=== PATIENT | male | born 1940 | race Caucasian/White ===

== ENCOUNTER 2018-11-06 08:40 | Day surgery (SDC) | payer MEDICARE, BC ==
[~2018-11-06] VITALS: Ht 172.7 cm; Wt 93.1 kg
[2018-11-06] VITALS (13 sets, daily range): BP systolic 93–150; BP diastolic 43–70
[~2018-11-06 08:40] MED LIST: ALLO100T PO; ASPI-1 PO; ATOR40TA PO; CHOL400T57 PO; COLC0.6C3 PO; DIPH-3 PO; FERR134T2 PO; FINA5TAB11 PO; FLUT1BLS3 INH; GLUC100017; IBUP-2264; LEVO125T69 PO; MELO-100 PO; MONT10TA24 PO; MULT-662 PO; NITR0.4T51 SL; OMEP-84 PO; OXYC-658 PO; PIOG45TA PO; SENN-173 PO; SUMA25TA35 PO; ZET10T PO
[2018-11-06] MEDS ORDERED: glucagon, human recombinant 1mg kit SUBCUT PRN (09:20)
[2018-11-06] MEDS ORDERED: dextrose 50%-water 50ml dispensing syringe IV PRN ×2 (09:20)
[2018-11-06] MEDS ORDERED: insulin Lispro (HumaLOG) vial - multi-dose SQ SCH (09:20)
[2018-11-06] MEDS ORDERED: MESSAGE TO PHARMACY PO ONE (09:20)
[2018-11-06] MEDS ORDERED: dextrose ORAL solution 15 GM/59 ML bottle PO PRN ×2 (09:20)
[2018-11-06] MEDS ORDERED: nitroGLYCERIN 0.4mg SUBLingual tab SL PRN (09:25)
[2018-11-06] MEDS ORDERED: LORazepam 0.5 MG tablet PO PRN (09:25)
[2018-11-06] MEDS ORDERED: normal saline 1000ml 1,000 ML IV SCH (09:25)
[2018-11-06] MEDS ORDERED: diphenhydrAMINE 25mg capsule PO PRN (09:25)
[2018-11-06] MEDS ORDERED: ASPI81TA52 PO (09:45)
[2018-11-06 09:46] LABS: BASOPHILS % (AUTO) 0.7 % (0-1); EOSINOPHILS # (AUTO) 0.3 X10'3 (0-0.9); EOSINOPHILS % (AUTO) 3.6 % (0-6); HEMATOCRIT 34.5 % (42.0-52.0); HEMOGLOBIN 11.4 g/dl (14.0-17.9); LYMPHOCYTES # (AUTO) 0.6 X10'3 (1.1-4.8); LYMPHOCYTES % (AUTO) 8.9 % (21-51); MEAN CORPUSCULAR HEMOGLOBIN 31.6 PG (27.0-31.0); MEAN CORPUSCULAR VOLUME 95.8 FL (78-98); MEAN PLATELET VOLUME 7.4 FL (7.4-10.4); MONOCYTES # (AUTO) 0.5 X10'3 (0-0.9); NEUTROPHILS # (AUTO) 5.7 X10'3 (1.8-7.7); NEUTROPHILS % (AUTO) 79.8 % (42-75); PLATELET COUNT 232 X10'3 (140-440); RED BLOOD COUNT 3.61 X10'6 (4.70-6.10); RED CELL DISTRIBUTION WIDTH 15.2 % (11.5-14.5); WHITE BLOOD COUNT 7.2 X10'3 (4.5-11.0)
[2018-11-06 09:51] LABS: ALBUMIN 3.7 G/DL (3.4-5.0); ANION GAP 12 (8-16); BLOOD UREA NITROGEN 32 MG/DL (7-18); BUN/CREATININE RATIO 21.9 (5.4-32.0); CALCIUM 9.1 MG/DL (8.5-10.1); CHLORIDE 105 MMOL/L (99-107); CREATININE 1.46 MG/DL (0.60-1.10); GLUCOSE 131 MG/DL (70-104); SODIUM 143 MMOL/L (135-145); TOTAL CARBON DIOXIDE 26.4 MMOL/L (24-32); eGFR 47 ML/MIN
[2018-11-06] MEDS ORDERED: LIDOcaine 1% (10mg/ml)w/preservative injection 20ml MDV ONE (09:55)
[2018-11-06] MEDS ORDERED: heparin 1,000 UNITS/NS 500ml 500 ML ONE (09:55)
[2018-11-06] MEDS ORDERED: iohexol 350MG/ML 100ml bottle IV ONE (09:55)
[2018-11-06] MEDS ORDERED: iohexol 350 MG/ML 50ML vial IV ONE ×3 (09:55→11:59)
[2018-11-06 10:08] LABS: INR 1.1 INR; PARTIAL THROMBOPLASTIN TIME 29 SECONDS (22-32); PROTHROMBIN TIME 10.8 SECONDS (9.0-12.0)
[2018-11-06] MEDS ORDERED: midazolam 2 mg/2 ml injection ONE ×2 (10:23→12:02)
[2018-11-06] MEDS ORDERED: fentaNYL/PF 50MCG/1 ML 2ML syringe ONE (10:23)
[2018-11-06] MEDS ORDERED: acetaminophen 325mg tablet PO PRN (13:10)
[2018-11-06] MEDS ORDERED: OXAZEpam 15mg capsule PO PRN (13:10)
[2018-11-06] MEDS ORDERED: proCHLORperazine 10 MG/2 ml inj IV PRN (13:10)
[2018-11-06] MEDS ORDERED: ondansetron/PF 4mg/2ml inj IV PRN (13:10)
[2018-11-06] MEDS ORDERED: HYDROcodone/acetaminophen 10/325mg tab PO PRN (13:10)
[2018-11-06] MEDS ORDERED: HYDROcodone/acetaminophen 5mg/325mg tablet PO PRN (13:10)
[2018-11-06] MEDS ORDERED: pneumococcal 23-VAL P-sac vacc 25 mcg/0.5ml vial IMVAC ONE (16:57)
[2018-11-06] MEDS ORDERED: insulin glargine (Lantus) pen - multi-dose SQ SCH (21:00)
== END 2018-11-06 19:41 | disposition home or self-care (01) ==
LOC: SSTAY O 08:40
PROVIDERS: ATTEND Internal Medicine Cardiovascular Disease
DX: I25.118 Atherosclerotic heart disease of native coronary artery with other forms of angina pectoris (principal); I48.0 Paroxysmal atrial fibrillation; E11.9 Type 2 diabetes mellitus without complications; I10 Essential (primary) hypertension; E78.5 Hyperlipidemia, unspecified; J44.9 Chronic obstructive pulmonary disease, unspecified; G89.29 Other chronic pain; I35.1 Nonrheumatic aortic (valve) insufficiency; J45.998 Other asthma; M19.90 Unspecified osteoarthritis, unspecified site; H91.8X3 Other specified hearing loss, bilateral; Z72.89 Other problems related to lifestyle; Z79.1 Long term (current) use of non-steroidal anti-inflammatories (NSAID); Z79.891 Long term (current) use of opiate analgesic; Z95.1 Presence of aortocoronary bypass graft; Z86.79 Personal history of other diseases of the circulatory system; Z87.891 Personal history of nicotine dependence; Z79.4 Long term (current) use of insulin; Z23 Encounter for immunization; Z79.82 Long term (current) use of aspirin; Z79.899 Other long term (current) drug therapy
CPT/HCPCS: 36415; 71046; 80048; 83036; 85025; 85610; 85730; 90732; 93005; 93459; 93567; 99152; 99153; A6257; C1760; G0009; J1644; J2001; J2250; J3010; J7030; Q9967; A4620; C1769

== ENCOUNTER 2020-04-07 08:16 | Outpatient (CLI) | payer MEDICARE, BC ==
[~2020-04-07] VITALS: Ht 172.7 cm; Wt 88.5 kg
[~2020-04-07 08:16] MED LIST changes: -ASPI-1 PO; +ASPI81TA52 PO; -DIPH-3 PO; -IBUP-2264; +IBUP-2697; -MONT10TA24 PO; +MONT10TA26 PO
[2020-04-07] MEDS ORDERED: albuterol 2.5 MG/3 ML nebule NEB ONE (09:05)
[2020-04-07 17:10] LABS: TOTAL HEMOGLOBIN 12.2 G/dl (14.0-17.9)
== END 2020-04-07 23:59 | disposition home or self-care (01) ==
LOC: RT 08:16
PROVIDERS: ATTEND Internal Medicine Cardiovascular Disease
DX: R06.02 Shortness of breath (principal)
CPT/HCPCS: 85018; 94060; 94727; 94729; 94760

== ENCOUNTER 2020-12-11 20:46 | Inpatient (IN) | payer MEDICARE, BC ==
[~2020-12-11] VITALS: Ht 170.2 cm; Wt 82.0 kg
[2020-12-11 18:00] VITALS: BP 100/47
[~2020-12-11 20:46] MED LIST changes: +ALBU8.5H8 IH; +ATR0.5NEB NEB; +CYAN100087 PO; +FLO0.4C PO; +FURO40TA4 PO; -GLUC100017; -IBUP-2697; +MELA10TA PO; -MELO-100 PO; +METO25TA6 PO; -MONT10TA26 PO; +MONT10TA97 PO; -OXYC-658 PO; -PIOG45TA PO; +POTA8CAP20 PO; -SENN-173 PO; +TIOT4MIS5 INH
[2020-12-11] MEDS ORDERED: temazepam 15mg capsule PO PRN (21:00)
[2020-12-11] MEDS ORDERED: aspirin 81mg tab.chew PO ONE (21:15)
[2020-12-11 21:32] LABS: BASOPHILS # (AUTO) 0.1 X10'3 (0-0.2); BASOPHILS % (AUTO) 0.9 % (0-1); EOSINOPHILS # (AUTO) 0.1 X10'3 (0-0.9); EOSINOPHILS % (AUTO) 1.9 % (0-6); HEMATOCRIT 38.4 % (42.0-52.0); HEMOGLOBIN 12.4 g/dl (14.0-17.9); LYMPHOCYTES # (AUTO) 0.9 X10'3 (1.1-4.8); LYMPHOCYTES % (AUTO) 12.3 % (21-51); MEAN CORPUSCULAR HEMOGLOBIN 29.9 PG (27.0-31.0); MEAN CORPUSCULAR HGB CONC 32.4 g/dL (33.0-36.5); MEAN CORPUSCULAR VOLUME 92.4 FL (78-98); MEAN PLATELET VOLUME 6.7 FL (7.4-10.4); MONOCYTES # (AUTO) 0.8 X10'3 (0-0.9); MONOCYTES % (AUTO) 11.6 % (2-12); NEUTROPHILS # (AUTO) 5.3 X10'3 (1.8-7.7); NEUTROPHILS % (AUTO) 73.3 % (42-75); PLATELET COUNT 281 X10'3 (140-440); RED BLOOD COUNT 4.16 X10'6 (4.70-6.10); RED CELL DISTRIBUTION WIDTH 16.6 % (11.5-14.5); WHITE BLOOD COUNT 7.2 X10'3 (4.5-11.0)
[2020-12-11 21:47] LABS: ALANINE AMINOTRANSFERASE 22 U/L (12-78); ALBUMIN 3.4 G/DL (3.4-5.0); ALBUMIN/GLOBULIN RATIO 1.1 (1.1-1.5); ALKALINE PHOSPHATASE 63 IU/L (46-116); ANION GAP 6 (8-16); ASPARTATE AMINO TRANSFERASE 13 U/L (10-37); BILIRUBIN,TOTAL 0.4 MG/DL (0.1-1.0); BLOOD UREA NITROGEN 22 MG/DL (7-18); BUN/CREATININE RATIO 15.1 (5.4-32.0); CALCIUM 8.2 MG/DL (8.5-10.1); CHLORIDE 106 MMOL/L (99-107); CREATININE 1.46 MG/DL (0.60-1.10); GLUCOSE 129 MG/DL (70-104); POTASSIUM 4.2 MMOL/L (3.5-5.1); SODIUM 141 MMOL/L (135-145); TOTAL CARBON DIOXIDE 28.6 MMOL/L (24-32); TOTAL PROTEIN 6.5 G/DL (6.4-8.2); eGFR 46 ML/MIN
[2020-12-11] MEDS ORDERED: magnesium 2GM in 50ml NS 50 ML IV PRN (22:30)
[2020-12-11] MEDS ORDERED: magnesium 4gm in 100ml NS 100 ML IV PRN (22:30)
[2020-12-11] MEDS ORDERED: magnesium Cl slow-release 64mg tablet PO PRN (22:30)
[2020-12-11] MEDS ORDERED: potassium Cl 40MEQ/1/2NS 520ml 520 ML IV PRN ×2 (22:30)
[2020-12-11] MEDS ORDERED: HYDROcodone/acetaminophen 10/325mg tab PO PRN (22:30)
[2020-12-11] MEDS ORDERED: regadenoson 0.4mg/5ml syringe IV ONE (22:30)
[2020-12-11] MEDS ORDERED: morphine 2 MG/ML inj. syringe IV PRN ×2 (22:30)
[2020-12-11] MEDS ORDERED: ondansetron/PF 4mg/2ml inj IV PRN (22:30)
[2020-12-11] MEDS ORDERED: acetaminophen 325mg tablet PO PRN ×2 (22:30)
[2020-12-11] MEDS ORDERED: metoprolol tartrate 1mg/ml inj IV PRN (22:30)
[2020-12-11] MEDS ORDERED: docusate sod 100mg capsule PO PRN (22:30)
[2020-12-11] MEDS ORDERED: HYDROcodone/acetaminophen 5mg/325mg tablet PO PRN (22:30)
[2020-12-11] MEDS ORDERED: potassium Cl 20 mEq SR tablet PO PRN ×2 (22:30)
[2020-12-11] MEDS ORDERED: normal saline 1000ml 1,000 ML IV SCH (22:30)
[2020-12-11] MEDS ORDERED: aminophylline 250mg/10ml inj. IV PRN (22:30)
[2020-12-11] MEDS ORDERED: nitroGLYCERIN 0.4mg SUBLingual tab SL PRN (22:30)
[2020-12-11] MEDS ORDERED: dextrose 50%-water 50ml dispensing syringe IV PRN ×2 (22:55)
[2020-12-11] MEDS ORDERED: glucagon, human recombinant 1mg kit SUBCUT PRN (22:55)
[2020-12-11] MEDS ORDERED: MESSAGE TO PHARMACY PO ONE (22:55)
[2020-12-11] MEDS ORDERED: insulin Lispro (HumaLOG) vial - multi-dose SQ SCH (22:55)
[2020-12-11] MEDS ORDERED: dextrose ORAL solution 15 GM/59 ML bottle PO PRN ×2 (22:55)
[2020-12-11 23:35] VITALS: BP 144/78
[2020-12-12] VITALS (10 sets, daily range): BP systolic 111–147; BP diastolic 52–80
[2020-12-12 03:29] LABS: BASOPHILS # (AUTO) 0.1 X10'3 (0-0.2); BASOPHILS % (AUTO) 1.1 % (0-1); EOSINOPHILS # (AUTO) 0.2 X10'3 (0-0.9); EOSINOPHILS % (AUTO) 2.6 % (0-6); HEMATOCRIT 35.3 % (42.0-52.0); HEMOGLOBIN 11.6 g/dl (14.0-17.9); LYMPHOCYTES # (AUTO) 1.2 X10'3 (1.1-4.8); LYMPHOCYTES % (AUTO) 16.5 % (21-51); MEAN CORPUSCULAR HEMOGLOBIN 30.2 PG (27.0-31.0); MEAN CORPUSCULAR HGB CONC 32.7 g/dL (33.0-36.5); MEAN CORPUSCULAR VOLUME 92.5 FL (78-98); MEAN PLATELET VOLUME 6.9 FL (7.4-10.4); MONOCYTES # (AUTO) 0.9 X10'3 (0-0.9); MONOCYTES % (AUTO) 12.8 % (2-12); NEUTROPHILS # (AUTO) 4.9 X10'3 (1.8-7.7); PLATELET COUNT 265 X10'3 (140-440); RED BLOOD COUNT 3.82 X10'6 (4.70-6.10); RED CELL DISTRIBUTION WIDTH 16.9 % (11.5-14.5); WHITE BLOOD COUNT 7.3 X10'3 (4.5-11.0)
[2020-12-12 03:46] LABS: ALANINE AMINOTRANSFERASE 18 U/L (12-78); ALBUMIN/GLOBULIN RATIO 1.1 (1.1-1.5); ALKALINE PHOSPHATASE 51 IU/L (46-116); ANION GAP 8 (8-16); ASPARTATE AMINO TRANSFERASE 16 U/L (10-37); BILIRUBIN,TOTAL 0.5 MG/DL (0.1-1.0); BLOOD UREA NITROGEN 22 MG/DL (7-18); BUN/CREATININE RATIO 17.1 (5.4-32.0); CALCIUM 7.9 MG/DL (8.5-10.1); CHLORIDE 107 MMOL/L (99-107); CREATININE 1.29 MG/DL (0.60-1.10); GLUCOSE 136 MG/DL (70-104); POTASSIUM 3.7 MMOL/L (3.5-5.1); SODIUM 140 MMOL/L (135-145); TOTAL CARBON DIOXIDE 25.4 MMOL/L (24-32); TOTAL PROTEIN 5.8 G/DL (6.4-8.2); eGFR 53 ML/MIN
--- NOTE | 2020-12-12 06:28 | NUR ---
Patient in room PCU 3016. I have received report from KARMA Alcazar and had the opportunity to ask questions and assume patient care.
--- NOTE | 2020-12-12 06:29 | NUR ---
Problems reprioritized. Patient report given, questions answered & plan of care reviewed with Cristine RN
[2020-12-12] MEDS ORDERED: albuterol 2.5 MG/3 ML nebule NEB PRN (07:25)
[2020-12-12] MEDS ORDERED: pantoprazole 40mg Tablet.DR PO SCH (07:30)
[2020-12-12] MEDS ORDERED: ezetimibe 10mg tablet PO SCH (08:00)
[2020-12-12] MEDS ORDERED: ferrous sulfate 325mg tablet PO SCH (08:00)
[2020-12-12] MEDS ORDERED: finasteride 5mg tablet PO SCH (08:00)
[2020-12-12] MEDS ORDERED: budesonide 0.5mg/2ml UD nebule IH SCH (08:00)
[2020-12-12] MEDS ORDERED: aspirin 81mg tablet.DR PO SCH (08:00)
[2020-12-12] MEDS ORDERED: tamsulosin 0.4mg capsule PO SCH (08:00)
[2020-12-12] MEDS ORDERED: levoTHYROXINE 125mcg tablet PO SCH (08:00)
[2020-12-12] MEDS ORDERED: ipratropium 0.5 MG/2.5ML nebule NEB SCH (08:00)
[2020-12-12] MEDS ORDERED: heparin, porcine 5000 units/ml vial SQ SCH (08:00)
[2020-12-12] MEDS ORDERED: furosemide 40mg tablet PO SCH (08:00)
[2020-12-12] MEDS ORDERED: K and/or MAG REPLACEMENT MC SCH (08:00)
--- NOTE | 2020-12-12 13:03 | NUR ---
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 Pt reports eating fruits exacerbates general allergy symptoms such as dry/watery eyes so he simply does not eat at home. Not an anaphylactic allergy per pt report; pending allergy update in EMR. Currently pt does not like milk to drink as well as peas per RN; dietary notified. Noted hx DM w/ A1C less than 7 appropriate given age. To provide full initial assessment on above date. Addendum: 12/12/20 at [address] Amended: Links added.
--- NOTE | 2020-12-12 15:36 | NUR ---
Patient given hospital top, I was unable to find his shirt, called ER and lost and found, looked throughout room for his shirt. Unable to describe which shirt he was wearing but no shirt was found.Patient stated "not worried about any shirt, I'll go home shirtless". Given a hospital shirt and offered blanket but he declined.
[2020-12-12] MEDS ORDERED: montelukast 10mg tablet PO SCH (21:00)
[2020-12-12] MEDS ORDERED: allopurinol 100mg tablet PO SCH (21:00)
[2020-12-12] MEDS ORDERED: insulin glargine (Lantus) pen - multi-dose SQ SCH (21:00)
[2020-12-12] MEDS ORDERED: atorvastatin 20mg tablet PO SCH (21:00)
--- NOTE | 2020-12-14 10:06 | NUR ---
CASE MANAGEMENT DISCHARGE FOLLOW UP: Spoke with pt via telephone. Pt reports that he is "doing okay." Denies current CP, but states that he had some CP yesterday that resolved with 1 dose of nitro, pt advised to return to ED or notify EMS if he has further CP requirng Nitrop. Pt denies any current CP, weakness. He states that he is SOB with exertion but that it is at the level of his baseline. Pt verbalizes understanding of s/sx requiring further evaluation/emergent assistance. Pt verbalizes understanding of current medications. Pt verbalizes compliance with MD discharge instructions. Pt verbalizes understanding of the importance in making/keeping follow-up appointments, states saw one of his doctors yesterday and an MRI showed "spots in back" and that doctor is going to refer him to a specialist, he thinks she said a "bone doctor", possibly Dr Owen. He states that he has not contacted Dr Bolaños's office for an appointment, but that he did give his dyer assistant his hospital paperwork. He states that he will call Dr Bolaños's office today to set up a follow-up appointment, declines need for assistance. Pt states no further questions/concerns at this time.
== END 2020-12-12 15:24 | disposition home or self-care (01) | DRG 313 ==
LOC: ER 20:47 → PCU 3S 22:29
PROVIDERS: ADMIT Internal Medicine; ATTEND Internal Medicine
PROC: 4A02XM4 Measurement of Cardiac Total Activity, External Approach (ICD-10-PCS; principal; 2020-12-12)
PROC: 3E033HZ Introduction of Radioactive Substance into Peripheral Vein, Percutaneous Approach (ICD-10-PCS; 2020-12-12)
DX: R07.9 Chest pain, unspecified (principal); E03.9 Hypothyroidism, unspecified; E11.22 Type 2 diabetes mellitus with diabetic chronic kidney disease; E78.00 Pure hypercholesterolemia, unspecified; E78.5 Hyperlipidemia, unspecified; I12.9 Hypertensive chronic kidney disease with stage 1 through stage 4 chronic kidney disease, or unspecified chronic kidney disease; I25.10 Atherosclerotic heart disease of native coronary artery without angina pectoris; J44.9 Chronic obstructive pulmonary disease, unspecified; N18.9 Chronic kidney disease, unspecified; N40.0 Benign prostatic hyperplasia without lower urinary tract symptoms; G47.30 Sleep apnea, unspecified; M10.9 Gout, unspecified; J45.909 Unspecified asthma, uncomplicated; Z79.82 Long term (current) use of aspirin; Z79.899 Other long term (current) drug therapy; Z95.1 Presence of aortocoronary bypass graft; Z91.018 Allergy to other foods
CPT/HCPCS: 36415; 71045; 78452; 80053; 82948; 83036; 83735; 83880; 84484; 85025; 93005; 93017; 93308; 97161; 97530; 99285; A9500; G0378; J1815; J2785; J7030

== ENCOUNTER 2020-12-28 12:30 | Emergency (ER) | payer MEDICARE, BC ==
[~2020-12-28] VITALS: Ht 170.2 cm; Wt 81.8 kg
[2020-12-28 12:52] VITALS: BP 132/67
[2020-12-28] MEDS ORDERED: PRED20TA PO (14:09)
== END 2020-12-28 14:40 | disposition home or self-care (01) ==
LOC: ER 12:31
DX: J45.901 Unspecified asthma with (acute) exacerbation (principal); R06.02 Shortness of breath; R07.89 Other chest pain; I25.10 Atherosclerotic heart disease of native coronary artery without angina pectoris; E78.00 Pure hypercholesterolemia, unspecified; I12.9 Hypertensive chronic kidney disease with stage 1 through stage 4 chronic kidney disease, or unspecified chronic kidney disease; E11.22 Type 2 diabetes mellitus with diabetic chronic kidney disease; N18.9 Chronic kidney disease, unspecified; E03.9 Hypothyroidism, unspecified; M10.9 Gout, unspecified; Z98.890 Other specified postprocedural states; Z88.8 Allergy status to other drugs, medicaments and biological substances; Z79.82 Long term (current) use of aspirin; Z79.899 Other long term (current) drug therapy
CPT/HCPCS: 93005; 99283

== ENCOUNTER 2021-02-25 07:51 | Emergency (ER) | payer MEDICARE, BC ==
[~2021-02-25] VITALS: Ht 170.2 cm; Wt 87.5 kg
[~2021-02-25 07:51] MED LIST changes: +LOP25T PO; -METO25TA6 PO; +MONT10TA32 PO; -MONT10TA97 PO
[2021-02-25 09:47] LABS: BASOPHILS # (AUTO) 0.1 X10'3 (0-0.2); BASOPHILS % (AUTO) 0.9 % (0-1); EOSINOPHILS # (AUTO) 0.1 X10'3 (0-0.9); EOSINOPHILS % (AUTO) 0.7 % (0-6); HEMATOCRIT 40.4 % (42.0-52.0); HEMOGLOBIN 12.8 g/dl (14.0-17.9); LYMPHOCYTES # (AUTO) 0.4 X10'3 (1.1-4.8); MEAN CORPUSCULAR HEMOGLOBIN 29.3 PG (27.0-31.0); MEAN CORPUSCULAR HGB CONC 31.8 g/dL (33.0-36.5); MEAN CORPUSCULAR VOLUME 92.3 FL (78-98); MEAN PLATELET VOLUME 7.1 FL (7.4-10.4); MONOCYTES # (AUTO) 0.7 X10'3 (0-0.9); MONOCYTES % (AUTO) 7.4 % (2-12); NEUTROPHILS # (AUTO) 7.6 X10'3 (1.8-7.7); PLATELET COUNT 241 X10'3 (140-440); RED BLOOD COUNT 4.38 X10'6 (4.70-6.10); RED CELL DISTRIBUTION WIDTH 18.3 % (11.5-14.5); WHITE BLOOD COUNT 8.8 X10'3 (4.5-11.0)
[2021-02-25 10:04] LABS: ALANINE AMINOTRANSFERASE 21 U/L (12-78); ALBUMIN 3.4 G/DL (3.4-5.0); ALBUMIN/GLOBULIN RATIO 1.1 (1.1-1.5); ALKALINE PHOSPHATASE 60 IU/L (46-116); ANION GAP 7 (8-16); ASPARTATE AMINO TRANSFERASE 21 U/L (10-37); BILIRUBIN,TOTAL 0.6 MG/DL (0.1-1.0); BLOOD UREA NITROGEN 15 MG/DL (7-18); BUN/CREATININE RATIO 12.3 (5.4-32.0); CALCIUM 8.2 MG/DL (8.5-10.1); CHLORIDE 110 MMOL/L (99-107); CREATININE 1.22 MG/DL (0.60-1.10); GLUCOSE 109 MG/DL (70-104); POTASSIUM 4.1 MMOL/L (3.5-5.1); SODIUM 145 MMOL/L (135-145); TOTAL CARBON DIOXIDE 27.9 MMOL/L (24-32); TOTAL PROTEIN 6.4 G/DL (6.4-8.2); eGFR 57 ML/MIN
--- NOTE | 2021-02-25 10:05 | NUR ---
PATIENT C/O OF SUBSTERNAL CP JUST STARTED NO RADIATION, "MILD" , ACHE, DOES NOT GET WORSE WITH DEEP BREATHE, REPEAT EKG IN PROGRESS, THEN STOPPED, DURATION ABOUT 2 MINUTES
--- NOTE | 2021-02-25 10:07 | NUR ---
SHANIA GOOD INFORMED OF CP AND SHOWN EKG, DR PAFS SHOWN EKG, NO ORDERS
[2021-02-25 10:23] LABS: CLARITY,URINE CLEAR (Clear); COLOR,URINE YELLOW (Yellow); GLUCOSE, URINE NEGATIVE (Neg); KETONES,URINE NEGATIVE (Neg); LEUKOCYTE ESTERASE ,URINE NEGATIVE (Neg); NITRITES, URINE NEGATIVE (Neg); OCCULT BLOOD,URINE NEGATIVE (Neg); PROTEIN,URINE NEGATIVE (Neg); UA COLLECTION TYPE URINAL; UROBILINOGEN,URINE 0.2 E.U/dL (0.2-1.0)
--- NOTE | 2021-02-25 10:23 | NUR ---
PATIENT DID NOT TAKE ANY OF HIS MEDICATIONS THIS AM : DID NOT TAKE HIS HTN MEDS
--- NOTE | 2021-02-25 10:29 | NUR ---
PATIENT FEELS "MUCH BETTER" NOW CALLED LAB TO RUN TROPONIN: SHANIA ORDERED SERIES AND I ORDERED A SINGLE TROPONIN LAB WILL RUN TROPONIN NOW ON BLOOD DRAWN EARLIER
[2021-02-25 11:35] VITALS: BP 134/66
== END 2021-02-25 11:37 | disposition home or self-care (01) ==
LOC: ER 07:51
DX: R06.02 Shortness of breath (principal); R42 Dizziness and giddiness; R07.89 Other chest pain; R55 Syncope and collapse; I25.10 Atherosclerotic heart disease of native coronary artery without angina pectoris; E78.00 Pure hypercholesterolemia, unspecified; I12.9 Hypertensive chronic kidney disease with stage 1 through stage 4 chronic kidney disease, or unspecified chronic kidney disease; E11.22 Type 2 diabetes mellitus with diabetic chronic kidney disease; N18.9 Chronic kidney disease, unspecified; E03.9 Hypothyroidism, unspecified; M10.9 Gout, unspecified; Z98.890 Other specified postprocedural states; Z91.018 Allergy to other foods; Z88.8 Allergy status to other drugs, medicaments and biological substances; Z79.82 Long term (current) use of aspirin; Z79.899 Other long term (current) drug therapy
CPT/HCPCS: 36415; 71045; 80053; 81003; 83880; 84484; 85025; 93005; 99285

== ENCOUNTER 2022-02-16 13:51 | Emergency (ER) | payer MEDICARE, BC ==
[~2022-02-16] VITALS: Ht 165.1 cm; Wt 85.0 kg
[~2022-02-16 13:51] MED LIST changes: +ALBU8.5H17 IH; -ALBU8.5H8 IH; +MONT-40 PO; -MONT10TA32 PO
--- NOTE | 2022-02-16 14:00 | NUR ---
Pt placed in room 8. Son at the bedside. Pt is confused and is hallucinating. He is reaching for things in the air that are not present.
[2022-02-16] MEDS ORDERED: quetiapine 100mg tablet PO STA (14:19)
[2022-02-16] MEDS ORDERED: normal saline 1000ML IV soln IVB ONE (14:20)
[2022-02-16] MEDS ORDERED: OLANZapine **IM** 10 mg inj. IM ONE (14:20)
[2022-02-16 14:36] LABS: BASOPHILS % (AUTO) 0.7 % (0-1); EOSINOPHILS % (AUTO) 0.7 % (0-6); HEMATOCRIT 30.6 % (42.0-52.0); HEMOGLOBIN 10.1 g/dl (14.0-17.9); LYMPHOCYTES # (AUTO) 0.5 X10'3 (1.1-4.8); LYMPHOCYTES % (AUTO) 8.1 % (21-51); MEAN CORPUSCULAR HEMOGLOBIN 32.4 PG (27.0-31.0); MEAN CORPUSCULAR HGB CONC 33.1 g/dL (33.0-36.5); MEAN CORPUSCULAR VOLUME 97.7 FL (78-98); MEAN PLATELET VOLUME 7.3 FL (7.4-10.4); MONOCYTES # (AUTO) 0.7 X10'3 (0-0.9); MONOCYTES % (AUTO) 10.9 % (2-12); NEUTROPHILS # (AUTO) 5.4 X10'3 (1.8-7.7); NEUTROPHILS % (AUTO) 79.6 % (42-75); PLATELET COUNT 187 X10'3 (140-440); RED BLOOD COUNT 3.13 X10'6 (4.70-6.10); RED CELL DISTRIBUTION WIDTH 15.9 % (11.5-14.5); WHITE BLOOD COUNT 6.7 X10'3 (4.5-11.0)
[2022-02-16 14:53] LABS: ALANINE AMINOTRANSFERASE 32 U/L (12-78); ALBUMIN 3.6 G/DL (3.4-5.0); ALBUMIN/GLOBULIN RATIO 1.2 (1.1-1.5); ALKALINE PHOSPHATASE 78 IU/L (46-116); ANION GAP 8 (8-16); ASPARTATE AMINO TRANSFERASE 25 U/L (10-37); BILIRUBIN,TOTAL 1.2 MG/DL (0.1-1.0); BLOOD UREA NITROGEN 32 MG/DL (7-18); CALCIUM 8.7 MG/DL (8.5-10.1); CHLORIDE 107 MMOL/L (99-107); CREATININE 1.78 MG/DL (0.60-1.10); GLUCOSE 156 MG/DL (70-104); POTASSIUM 3.8 MMOL/L (3.5-5.1); SODIUM 143 MMOL/L (135-145); TOTAL CARBON DIOXIDE 28.5 MMOL/L (24-32); TOTAL PROTEIN 6.7 G/DL (6.4-8.2); eGFR 37 ML/MIN
[2022-02-16] MEDS ORDERED: hyDROXYzine 50 mg/ml injection ***IM only IM ONE (16:00)
--- NOTE | 2022-02-16 16:15 | NUR ---
Pt is aggitated and confused.
[2022-02-16] MEDS ORDERED: LEVO50TA8 PO (17:39)
[2022-02-16] MEDS ORDERED: QUET25TA PO (17:39)
[2022-02-16] MEDS ORDERED: PARO10TA85 PO (17:39)
[2022-02-16] MEDS ORDERED: CELE-85 PO (17:39)
[2022-02-16] MEDS ORDERED: ALLO300T2 PO (17:39)
[2022-02-16] MEDS ORDERED: TRAZ-251 PO (17:39)
[2022-02-16] MEDS ORDERED: FLUT1AER IH (17:39)
[2022-02-16] MEDS ORDERED: FURO-150 PO (17:39)
[2022-02-16] MEDS ORDERED: olanzapine 10mg tablet PO ONE (17:45)
[2022-02-16] MEDS ORDERED: OLAN20TA3 PO (17:47)
[2022-02-16] MEDS ORDERED: OLAN10TA3 PO (17:47)
[2022-02-16] MEDS ORDERED: LEVO100C4 PO (17:47)
--- NOTE | 2022-02-16 18:19 | NUR ---
Pt is very aggitated. Unable to obtain vital signs due to aggitation. Provider is aware.
[2022-02-16 21:18] VITALS: BP 134/74
== END 2022-02-16 18:45 | disposition home or self-care (01) ==
LOC: ER 13:52
DX: F03.91 Unspecified dementia, unspecified severity, with behavioral disturbance (principal); R41.0 Disorientation, unspecified; R45.1 Restlessness and agitation; I25.10 Atherosclerotic heart disease of native coronary artery without angina pectoris; E78.00 Pure hypercholesterolemia, unspecified; J45.909 Unspecified asthma, uncomplicated; F10.10 Alcohol abuse, uncomplicated; I12.9 Hypertensive chronic kidney disease with stage 1 through stage 4 chronic kidney disease, or unspecified chronic kidney disease; E11.22 Type 2 diabetes mellitus with diabetic chronic kidney disease; N18.9 Chronic kidney disease, unspecified; E03.9 Hypothyroidism, unspecified; M10.9 Gout, unspecified; Z98.890 Other specified postprocedural states; Z88.8 Allergy status to other drugs, medicaments and biological substances; Z79.899 Other long term (current) drug therapy; Y90.9 Presence of alcohol in blood, level not specified
CPT/HCPCS: 36415; 71045; 80053; 83605; 84145; 84443; 84484; 85025; 87040; 96372; 99284; J3410; J3490

== ENCOUNTER 2022-02-27 14:55 | Inpatient (IN) | payer MEDICARE, BC ==
[~2022-02-27] VITALS: Ht 167.6 cm; Wt 88.1 kg
[~2022-02-27 14:55] MED LIST changes: -ALLO100T PO; +ALLO300T2 PO; -ASPI81TA52 PO; -ATR0.5NEB NEB; +CELE-85 PO; -CHOL400T57 PO; -COLC0.6C3 PO; -CYAN100087 PO; +FLUT1AER IH; -FLUT1BLS3 INH; +FURO-150 PO; -FURO40TA4 PO; +LEVO100C4 PO; -LEVO125T69 PO; +LEVO50TA8 PO; -LOP25T PO; -MONT-40 PO; -MULT-662 PO; +OLAN10TA3 PO; +OLAN20TA3 PO; +PARO10TA85 PO; +QUET25TA PO; -SUMA25TA35 PO; +TRAZ-251 PO; +etomidate 2mg/ml inj. ONE; +rocuronium 10mg/ml inj IV ONE
[2022-02-27] MEDS ORDERED: normal saline 1000ML IV soln IV ONE (15:05)
[2022-02-27 15:14] LABS: BASOPHILS % (AUTO) 0.1 % (0-1); EOSINOPHILS % (AUTO) 0 % (0-6); HEMATOCRIT 35.3 % (42.0-52.0); LYMPHOCYTES # (AUTO) 0.5 X10'3 (1.1-4.8); LYMPHOCYTES % (AUTO) 1.9 % (21-51); MEAN CORPUSCULAR HEMOGLOBIN 30.4 PG (27.0-31.0); MEAN CORPUSCULAR HGB CONC 31.2 g/dL (33.0-36.5); MEAN CORPUSCULAR VOLUME 97.2 FL (78-98); MEAN PLATELET VOLUME 7.2 FL (7.4-10.4); MONOCYTES # (AUTO) 1.3 X10'3 (0-0.9); MONOCYTES % (AUTO) 5.2 % (2-12); NEUTROPHILS # (AUTO) 22.4 X10'3 (1.8-7.7); NEUTROPHILS % (AUTO) 92.8 % (42-75); PLATELET COUNT 441 X10'3 (140-440); RED BLOOD COUNT 3.63 X10'6 (4.70-6.10); RED CELL DISTRIBUTION WIDTH 16.5 % (11.5-14.5); WHITE BLOOD COUNT 24.1 X10'3 (4.5-11.0)
[2022-02-27] MEDS ORDERED: piperacillin/tazo 3.375gm/50ml 50 ML IV ONE (15:25)
[2022-02-27] MEDS ORDERED: vancomycin/NS 1 GM ADD-VANTAGE 250 ML IV ONE (15:25)
[2022-02-27 15:29] LABS: ALANINE AMINOTRANSFERASE 38 U/L (12-78); ALBUMIN 2.5 G/DL (3.4-5.0); ALBUMIN/GLOBULIN RATIO 0.5 (1.1-1.5); ALKALINE PHOSPHATASE 105 IU/L (46-116); ANION GAP 16 (8-16); ASPARTATE AMINO TRANSFERASE 23 U/L (10-37); BILIRUBIN,TOTAL 1.1 MG/DL (0.1-1.0); BLOOD UREA NITROGEN 129 MG/DL (7-18); CALCIUM 9.4 MG/DL (8.5-10.1); CHLORIDE 109 MMOL/L (99-107); CREATININE 4.03 MG/DL (0.60-1.10); GLUCOSE 277 MG/DL (70-104); POTASSIUM 4.2 MMOL/L (3.5-5.1); SODIUM 150 MMOL/L (135-145); TOTAL CARBON DIOXIDE 25.1 MMOL/L (24-32); TOTAL PROTEIN 7.3 G/DL (6.4-8.2); eGFR 14 ML/MIN
[2022-02-27 15:38] LABS: MAGNESIUM 2.9 MG/DL (1.5-2.4); PHOSPHORUS 5.9 MG/DL (2.3-4.5)
--- NOTE | 2022-02-27 15:40 | NUR ---
suctioned thick brownish secretions via yankaur orally moderate amt. pt with a freq moist cough
[2022-02-27] MEDS ORDERED: aspirin 300mg supp.rect RC ONE (15:45)
[2022-02-27] MEDS ORDERED: normal saline 1000ML IV soln IVB ONE (15:50)
[2022-02-27] MEDS ORDERED: digoxin 250mcg/ml 2ml ampule IV ONE (15:50)
[2022-02-27] MEDS ORDERED: amiodarone 50MG/ML inj IV ONE (15:50)
[2022-02-27 15:58] LABS: CLARITY,URINE CLOUDY (Clear); COLOR,URINE YELLOW (Yellow); GLUCOSE, URINE NEGATIVE (Neg); KETONES,URINE TRACE mg/dl (Neg); LEUKOCYTE ESTERASE ,URINE NEGATIVE (Neg); NITRITES, URINE NEGATIVE (Neg); OCCULT BLOOD,URINE LARGE (Neg); PH,URINE 5.5 (4.8-8.0); PROTEIN,URINE 30 mg/dl (Neg)
[2022-02-27 16:03] LABS: UA COLLECTION TYPE FOLEY CATH
[2022-02-27 16:33] LABS: RBC,URINE 50-100 /HPF (0-2); WBC,URINE 0-4 /HPF (0-4)
[2022-02-27 16:37] LABS: HYALINE CASTS 0-3 /LPF (NEGATIVE); MUCUS STRANDS FEW /LPF (Neg); SQUAMOUS EPITHELIAL CELL,UR MODERATE /LPF (FEW); TRANSITIONAL EPI CELLS,URINE MODERATE /HPF
[2022-02-27 16:43] LABS: AMORPHOUS URATES 3+; BACTERIA,URINE NONE SEEN /HPF (Neg)
--- NOTE | 2022-02-27 17:09 | NUR ---
SON AT BEDSIDE
[2022-02-27] MEDS ORDERED: NOREPINEPHRINE BITARTRATE/D5W 250 ML IV PRN (17:45)
[2022-02-27] MEDS ORDERED: acetaminophen 325mg tablet PO PRN (17:45)
[2022-02-27] MEDS ORDERED: potassium Cl 20mEq/100mL bag 100 ML IV PRN (17:45)
[2022-02-27] MEDS ORDERED: potassium Cl 20 mEq SR tablet PO PRN ×2 (17:45)
[2022-02-27] MEDS ORDERED: magnesium 4gm in 100ml NS 100 ML IV PRN (17:45)
[2022-02-27] MEDS ORDERED: magnesium hydroxide 30ml (MOM) UD suspension PO PRN (17:45)
[2022-02-27] MEDS ORDERED: LIDOcaine 2% 10ml TOPICAL JELLY (Urojet) TP ONE (17:45)
[2022-02-27] MEDS ORDERED: ondansetron/PF 4mg/2ml inj IV PRN (17:45)
[2022-02-27] MEDS ORDERED: magnesium 2GM in 50ml NS 50 ML IV PRN (17:45)
[2022-02-27] MEDS ORDERED: ipratropium/albuterol 3ml nebule NEB PRN (17:45)
[2022-02-27] MEDS ORDERED: acetaminophen 650mg rectal suppository RC PRN (17:45)
[2022-02-27] MEDS: K and/or MAG REPLACEMENT MC SCH (18:00)
--- NOTE | 2022-02-27 18:06 | NUR ---
med rec faxed to pharmacy
[2022-02-27] MEDS ORDERED: FERR324T4 PO (18:10)
[2022-02-27] MEDS ORDERED: FERR-39 PO (18:11)
[2022-02-27] MEDS ORDERED: METO25TA6 PO (18:13)
[2022-02-27] MEDS ORDERED: OLAN10TA73 PO (18:15)
[2022-02-27] MEDS ORDERED: OLAN20TA34 PO (18:15)
[2022-02-27] MEDS ORDERED: QUET50TA24 PO (18:15)
[2022-02-27] MEDS ORDERED: NORepinephrine 8mg/ 250ml NS 250 ML IV PRN (18:15)
[2022-02-27] MEDS: docusate sod 100mg capsule PO SCH (18:53)
[2022-02-27 20:00] VITALS: BP 105/79
[2022-02-27] MEDS ORDERED: vancomycin inj 1,000 MG in normal saline 250ml IV soln 250 ML IV SCH (20:00)
--- NOTE | 2022-02-27 20:00 | NUR ---
Patient in room ICU 2037. I have received report from Memo PARADA from ER and had the opportunity to ask questions and assume patient care.
[2022-02-27 20:21] LABS: BASOPHILS # (AUTO) 0.1 X10'3 (0-0.2); BASOPHILS % (AUTO) 0.4 % (0-1); EOSINOPHILS % (AUTO) 0 % (0-6); HEMATOCRIT 33.4 % (42.0-52.0); HEMOGLOBIN 10.8 g/dl (14.0-17.9); LYMPHOCYTES # (AUTO) 0.2 X10'3 (1.1-4.8); MEAN CORPUSCULAR HEMOGLOBIN 31.2 PG (27.0-31.0); MEAN CORPUSCULAR HGB CONC 32.2 g/dL (33.0-36.5); MEAN CORPUSCULAR VOLUME 96.9 FL (78-98); MEAN PLATELET VOLUME 7.2 FL (7.4-10.4); MONOCYTES # (AUTO) 0.7 X10'3 (0-0.9); MONOCYTES % (AUTO) 4.2 % (2-12); NEUTROPHILS # (AUTO) 16.2 X10'3 (1.8-7.7); NEUTROPHILS % (AUTO) 94.4 % (42-75); PLATELET COUNT 334 X10'3 (140-440); RED BLOOD COUNT 3.45 X10'6 (4.70-6.10); RED CELL DISTRIBUTION WIDTH 16.3 % (11.5-14.5); WHITE BLOOD COUNT 17.1 X10'3 (4.5-11.0)
[2022-02-27 20:30] LABS: ALBUMIN 2.2 G/DL (3.4-5.0); ANION GAP 9 (8-16); BLOOD UREA NITROGEN 117 MG/DL (7-18); BUN/CREATININE RATIO 34.7 (5.4-32.0); CALCIUM 8.5 MG/DL (8.5-10.1); CHLORIDE 115 MMOL/L (99-107); CREATININE 3.37 MG/DL (0.60-1.10); GLUCOSE 187 MG/DL (70-104); SODIUM 149 MMOL/L (135-145); TOTAL CARBON DIOXIDE 25.5 MMOL/L (24-32); eGFR 18 ML/MIN
--- NOTE | 2022-02-27 20:30 | NUR ---
Plan: Admit to ICU ICU admit orders placed keep MAP > 65 Avoid further IVF. Repeat Chem 10 and then will decide about IVF Watch for further attcaks of SVT/ V-tach 2-D echocardiogram Trend troponin. Check CPK, LDH If troponin rising, will need Cards consult and heparin gtt Aggressive Pulmonary toilet Continue Supplemental O2 Low threshold to intubate Ante Suctioning. May need Mucomyst / hypertonic saline Sepsis Work up Trend Lactate Broad spectrum IV ABX Monitor renal function, lytes Monitor sodium level Q 6 hrs keep K between 4 and 5 and Mg > 2.0 Keep NPO DVT and GI prophylaxis Full Code: Discussed with daughter and son at bedside who stated that their dad did not want to live on machines but for the time being they will like to keep him full code. Overall prognosis is gaurded given multiple body systems are involved, old age and renal failure
[2022-02-27 21:00] VITALS: BP 111/39
[2022-02-27] MEDS: famotidine/PF 10 mg/ml inj IV SCH (21:33)
[2022-02-27] MEDS: heparin, porcine 5000 units/ml vial SQ SCH (21:34)
[2022-02-27 22:00] VITALS: BP 91/38
--- NOTE | 2022-02-27 22:10 | NUR ---
Doctor was notified about troponin of 1082. No orders were given.
[2022-02-27 23:00] VITALS: BP 107/50
[2022-02-28] VITALS (25 sets, daily range): BP systolic 88–136; BP diastolic 40–67
[2022-02-28] LABS: ABG BASE EXCESS -1.5 mmol/L (-2.0-2.0); ABG OXYGEN SATURATION 94.6 % (94-97); ABG PO2 (T) 79.6 mmHg (75.0-100.0); ALLEN'S TEST POSITIVE; FCOHb 0.3 % (0.0-3.9); FLOW 15 L/min; FO2Hb 94.3 % (94-97); PATIENT TEMPERATURE 37.1; TOTAL HEMOGLOBIN 10.7 G/dl (14.0-18.0)
[2022-02-28] MEDS ORDERED: piperacillin/tazo 3.375gm/50ml 50 ML IV SCH
[2022-02-28 00:42] LABS: TOTAL CELLS COUNTED 100
[2022-02-28 00:45] LABS: ANISOCYTOSIS 1+; PLATELET ESTIMATE NORMAL
[2022-02-28 06:17] LABS: ALBUMIN 1.8 G/DL (3.4-5.0); ANION GAP 12 (8-16); BLOOD UREA NITROGEN 117 MG/DL (7-18); BUN/CREATININE RATIO 38.4 (5.4-32.0); CALCIUM 8.3 MG/DL (8.5-10.1); CHLORIDE 118 MMOL/L (99-107); CREATININE 3.05 MG/DL (0.60-1.10); GLUCOSE 141 MG/DL (70-104); MAGNESIUM 2.8 MG/DL (1.5-2.4); POTASSIUM 3.8 MMOL/L (3.5-5.1); SODIUM 154 MMOL/L (135-145); TOTAL CARBON DIOXIDE 24.1 MMOL/L (24-32); eGFR 20 ML/MIN
[2022-02-28] MEDS ORDERED: vancomycin/NS 1 GM ADD-VANTAGE 250 ML IV PRN (07:35)
[2022-02-28 07:57] LABS: HEMOGLOBIN 9.3 g/dl (14.0-17.9); MEAN CORPUSCULAR VOLUME 97.5 FL (78-98); RED BLOOD COUNT 2.92 X10'6 (4.70-6.10); RED CELL DISTRIBUTION WIDTH 16.4 % (11.5-14.5)
[2022-02-28] MEDS: famotidine/PF 10 mg/ml inj IV SCH (07:57)
[2022-02-28 07:59] LABS: HEMATOCRIT 28.5 % (42.0-52.0); MEAN CORPUSCULAR HEMOGLOBIN 31.8 PG (27.0-31.0); MEAN CORPUSCULAR HGB CONC 32.6 g/dL (33.0-36.5); MEAN PLATELET VOLUME 7.4 FL (7.4-10.4); PLATELET COUNT 277 X10'3 (140-440); WHITE BLOOD COUNT 20.9 X10'3 (4.5-11.0)
[2022-02-28] MEDS: docusate sod 100mg capsule PO SCH (07:59)
[2022-02-28] MEDS: heparin, porcine 5000 units/ml vial SQ SCH ×2 (07:59→20:46)
[2022-02-28] MEDS: K and/or MAG REPLACEMENT MC SCH (08:00)
[2022-02-28 08:05] LABS: ALBUMIN 1.9 G/DL (3.4-5.0); ANION GAP 11 (8-16); BLOOD UREA NITROGEN 110 MG/DL (7-18); BUN/CREATININE RATIO 36.3 (5.4-32.0); CHLORIDE 121 MMOL/L (99-107); CREATININE 3.03 MG/DL (0.60-1.10); GLUCOSE 133 MG/DL (70-104); POTASSIUM 3.8 MMOL/L (3.5-5.1); TOTAL CARBON DIOXIDE 25.6 MMOL/L (24-32); eGFR 20 ML/MIN
[2022-02-28 08:13] LABS: SODIUM 158 MMOL/L (135-145)
[2022-02-28 08:41] LABS: PLATELET ESTIMATE NORMAL; TOTAL CELLS COUNTED 100
[2022-02-28 08:42] LABS: ELLIPTOCYTES 1+
[2022-02-28 08:43] LABS: TOXIC GRANULATION 1+
[2022-02-28 08:44] LABS: SCHISTOCYTES FEW
[2022-02-28] MEDS ORDERED: LEVO100T PO (09:42)
[2022-02-28] MEDS: dextrose 5%-water 1,000 ML IV SCH ×2 (10:29→19:20)
[2022-02-28] MEDS ORDERED: nitroGLYCERIN 0.4mg SUBLingual tab SL PRN (10:40)
[2022-02-28] MEDS ORDERED: albuterol 2.5 MG/3 ML nebule NEB PRN (10:40)
--- NOTE | 2022-02-28 11:04 | NUR ---
TF Consult: Pt admit DX sepsis, hypovolemic shock, hypernatremia, PNA, dementia, pulmonary edema, gout, and hypothyroidism per EMR. Pt NPO per MUSEUM REGISTRAR recs s/p R NG placement for hydration/EN today per make up operator. Noted pt current wt 81kg however not scaled wt w/ bed scale ~65.5kg this AM accounting for 5 pillows on bed while pt moving around during wt measurement; true BMI 23.3. TF recs below using current wt. Pt started on D5/water at 100ml/hr providing additional 408 kcals/day; will monitor for dex rate and EN adjustment needs if to continue receiving. Will continue to monitor for further nutrition intervention needs. Rec: 1. Continuous TF per MD using Vital AF at 65ml/hr goal; to provide 1560ml volume/day, 1872 kcals, 117g protein, and 1265ml water. 2. additional water flush 200ml Q4H; monitor serum Na for adjustment needs 3. PALB Q /; daily wts 4. routine bowel care 5. advance diet as medically indicated to regular per MUSEUM REGISTRAR/MD recs given age Addendum: 02/28/22 at [address] Amended: Links added.
[2022-02-28] MEDS ORDERED: ipratropium/albuterol 3ml nebule IH SCH (11:20)
[2022-02-28] MEDS: piperacillin/tazo 3.375gm/50ml 50 ML IV SCH (11:50)
[2022-02-28 12:55] LABS: ALBUMIN 1.9 G/DL (3.4-5.0); ANION GAP 9 (8-16); BLOOD UREA NITROGEN 106 MG/DL (7-18); BUN/CREATININE RATIO 37.1 (5.4-32.0); CALCIUM 8.3 MG/DL (8.5-10.1); CHLORIDE 123 MMOL/L (99-107); CREATININE 2.86 MG/DL (0.60-1.10); GLUCOSE 157 MG/DL (70-104); POTASSIUM 3.7 MMOL/L (3.5-5.1); TOTAL CARBON DIOXIDE 27.2 MMOL/L (24-32); eGFR 21 ML/MIN
[2022-02-28 12:59] LABS: SODIUM 159 MMOL/L (135-145)
[2022-02-28] MEDS ORDERED: magnesium hydroxide 30ml (MOM) UD suspension NG PRN (14:47)
[2022-02-28] MEDS: ipratropium/albuterol 3ml nebule IH SCH ×2 (15:20→21:09)
[2022-02-28 18:26] LABS: HEMOGLOBIN A1C 7.4 % (4.5-6.2)
[2022-02-28 19:20] LABS: ALBUMIN 1.7 G/DL (3.4-5.0); ANION GAP 12 (8-16); BLOOD UREA NITROGEN 101 MG/DL (7-18); BUN/CREATININE RATIO 37.5 (5.4-32.0); CALCIUM 7.9 MG/DL (8.5-10.1); CHLORIDE 117 MMOL/L (99-107); CREATININE 2.69 MG/DL (0.60-1.10); GLUCOSE 211 MG/DL (70-104); POTASSIUM 3.1 MMOL/L (3.5-5.1); SODIUM 153 MMOL/L (135-145); TOTAL CARBON DIOXIDE 24.3 MMOL/L (24-32); eGFR 23 ML/MIN
[2022-02-28] MEDS: olanzapine 10mg tablet NG SCH (20:46)
[2022-02-28] MEDS: Melatonin 3mg tablet NG SCH (20:46)
[2022-02-28] MEDS: QUEtiapine 25mg tablet PO SCH (20:47)
[2022-02-28] MEDS: traZODone 50mg tablet NG SCH (20:47)
[2022-02-28] MEDS: docusate sodium 100mg/10ml UD cup NG SCH (20:47)
[2022-02-28] MEDS: atorvastatin 20mg tablet NG SCH (20:47)
[2022-02-28] MEDS: celeCOXIB 100mg capsule NG SCH (20:47)
[2022-02-28] MEDS: budesonide 0.5mg/2ml UD nebule IH SCH (21:09)
[2022-03-01] VITALS (24 sets, daily range): BP systolic 95–140; BP diastolic 44–67
[2022-03-01] MEDS: piperacillin/tazo 3.375gm/50ml 50 ML IV SCH ×2 (00:12→11:04)
--- NOTE | 2022-03-01 02:20 | NUR ---
Hyperglycemic protocol has been started d/t blood glucose of 236.
[2022-03-01] MEDS ORDERED: dextrose 50%-water 50ml dispensing syringe IV PRN (02:25)
[2022-03-01] MEDS: insulin regular, human U-100 3ml vial - multi-dose SQ SCH ×4 (02:52→20:22)
[2022-03-01] MEDS: VANCOMYCIN LEVEL IV SCH (03:00)
[2022-03-01] MEDS: ipratropium/albuterol 3ml nebule IH SCH ×4 (03:14→19:28)
[2022-03-01 05:42] LABS: BASOPHILS % (AUTO) 0.1 % (0-1); EOSINOPHILS # (AUTO) 0.1 X10'3 (0-0.9); EOSINOPHILS % (AUTO) 0.3 % (0-6); HEMATOCRIT 26.9 % (42.0-52.0); HEMOGLOBIN 8.6 g/dl (14.0-17.9); LYMPHOCYTES # (AUTO) 0.5 X10'3 (1.1-4.8); LYMPHOCYTES % (AUTO) 2.2 % (21-51); MEAN CORPUSCULAR HEMOGLOBIN 31.1 PG (27.0-31.0); MEAN CORPUSCULAR HGB CONC 32.1 g/dL (33.0-36.5); MEAN CORPUSCULAR VOLUME 96.8 FL (78-98); MEAN PLATELET VOLUME 7.4 FL (7.4-10.4); MONOCYTES # (AUTO) 1.3 X10'3 (0-0.9); MONOCYTES % (AUTO) 6.1 % (2-12); NEUTROPHILS # (AUTO) 19.2 X10'3 (1.8-7.7); NEUTROPHILS % (AUTO) 91.3 % (42-75); PLATELET COUNT 255 X10'3 (140-440); RED BLOOD COUNT 2.78 X10'6 (4.70-6.10); RED CELL DISTRIBUTION WIDTH 16.4 % (11.5-14.5); WHITE BLOOD COUNT 21.1 X10'3 (4.5-11.0)
[2022-03-01 05:56] LABS: ALBUMIN 1.6 G/DL (3.4-5.0); ANION GAP 12 (8-16); BLOOD UREA NITROGEN 96 MG/DL (7-18); BUN/CREATININE RATIO 36.1 (5.4-32.0); CALCIUM 7.8 MG/DL (8.5-10.1); CHLORIDE 114 MMOL/L (99-107); CREATININE 2.66 MG/DL (0.60-1.10); GLUCOSE 272 MG/DL (70-104); MAGNESIUM 2.7 MG/DL (1.5-2.4); SODIUM 150 MMOL/L (135-145); TOTAL CARBON DIOXIDE 23.7 MMOL/L (24-32); VANCOMYCIN,RANDOM 16.5 UG/ML; eGFR 23 ML/MIN
--- NOTE | 2022-03-01 06:00 | NUR ---
Patient in room ICU 2037. I have received report from Maxwell PARADA and had the opportunity to ask questions and assume patient care.
[2022-03-01 06:06] LABS: POTASSIUM 2.9 MMOL/L (3.5-5.1)
[2022-03-01 06:54] LABS: ANISOCYTOSIS 1+; PLATELET ESTIMATE NORMAL; TOTAL CELLS COUNTED 100
[2022-03-01 06:55] LABS: SCHISTOCYTES 1+
[2022-03-01 06:56] LABS: TOXIC GRANULATION 1+
[2022-03-01] MEDS: pantoprazole 40MG/NS 100ML BAG 100 ML IV SCH (07:31)
[2022-03-01] MEDS: dextrose 5%-water 1,000 ML IV SCH ×3 (07:31→16:10)
[2022-03-01] MEDS: K and/or MAG REPLACEMENT MC SCH (08:00)
[2022-03-01] MEDS ORDERED: olanzapine 10mg tablet PO SCH (08:00)
[2022-03-01] MEDS ORDERED: allopurinol 300 MG tablet NG SCH (08:00)
[2022-03-01] MEDS ORDERED: non-formulary drug (Tiotropium Bromide (Spiriva Respimat) 2 PUFFS) INH SCH (08:00)
[2022-03-01] MEDS: budesonide 0.5mg/2ml UD nebule IH SCH ×2 (08:17→19:28)
[2022-03-01] MEDS: potassium CL 10mEq/100ml bag 100 ML IV PRN ×6 (08:22→15:34)
[2022-03-01] MEDS: olanzapine 10mg tablet NG SCH ×2 (08:28→20:11)
[2022-03-01] MEDS: ezetimibe 10mg tablet NG SCH (08:28)
[2022-03-01] MEDS: celeCOXIB 100mg capsule NG SCH ×2 (08:28→20:10)
[2022-03-01] MEDS: levoTHYROXINE 100mcg tablet NG SCH (08:28)
[2022-03-01] MEDS: heparin, porcine 5000 units/ml vial SQ SCH ×2 (08:28→20:10)
[2022-03-01] MEDS: docusate sodium 100mg/10ml UD cup NG SCH ×2 (08:28→20:08)
[2022-03-01] MEDS: QUEtiapine 25mg tablet PO SCH ×2 (08:29→20:13)
[2022-03-01] MEDS: PARoxetine 10mg tablet NG SCH (08:33)
[2022-03-01] MEDS: ferrous sulfate 300mg/5ml UD oral liquid NG SCH (11:04)
[2022-03-01] MEDS: lactulose 20gm/30ml cup NG SCH ×2 (11:05→20:08)
--- NOTE | 2022-03-01 13:30 | NUR ---
DM Consult: Pt hx T2DM A1C 7.4% this admit. Pt not appropriate for DM ed at this time given hx dementia currently AOx0 per EMR and NG feed dependent for nutrition. Addendum: 03/01/22 at [address] Amended: Links added.
[2022-03-01] MEDS ORDERED: albumin (Human) 5% 250ml 250 ML IV ONE (14:45)
--- NOTE | 2022-03-01 14:47 | NUR ---
Dr. Dunbar informed about low urine output of 10-15/hr. ordered albumin.
[2022-03-01] MEDS ORDERED: sincalide inj 1.5 MCG in normal saline 50ml IV soln 50 ML IV ONE (17:05)
[2022-03-01] MEDS ORDERED: bisacodyl 10mg suppository rectal RC PRN (17:45)
--- NOTE | 2022-03-01 18:37 | NUR ---
Problems reprioritized. Patient report given, questions answered & plan of care reviewed with Chandrika PARADA and [place] RN.
[2022-03-01 19:02] LABS: ALANINE AMINOTRANSFERASE 40 U/L (12-78); ALBUMIN 1.7 G/DL (3.4-5.0); ALBUMIN/GLOBULIN RATIO 0.4 (1.1-1.5); ALKALINE PHOSPHATASE 83 IU/L (46-116); ANION GAP 8 (8-16); ASPARTATE AMINO TRANSFERASE 48 U/L (10-37); BILIRUBIN,DIRECT 0.6 MG/DL (0-0.3); BILIRUBIN,TOTAL 0.9 MG/DL (0.1-1.0); BLOOD UREA NITROGEN 80 MG/DL (7-18); BUN/CREATININE RATIO 32.8 (5.4-32.0); CALCIUM 8.1 MG/DL (8.5-10.1); CHLORIDE 113 MMOL/L (99-107); CREATININE 2.44 MG/DL (0.60-1.10); GLUCOSE 258 MG/DL (70-104); POTASSIUM 3.7 MMOL/L (3.5-5.1); SODIUM 147 MMOL/L (135-145); TOTAL CARBON DIOXIDE 25.8 MMOL/L (24-32); TOTAL PROTEIN 5.9 G/DL (6.4-8.2); eGFR 25 ML/MIN
[2022-03-01] MEDS: traZODone 50mg tablet NG SCH (20:11)
[2022-03-01] MEDS: Melatonin 3mg tablet NG SCH (20:12)
[2022-03-01] MEDS: atorvastatin 20mg tablet NG SCH (20:12)
--- NOTE | 2022-03-01 23:10 | NUR ---
pt incontinent of copious amounts of liquid brown stool. Call in to Dr. Pollack with orders noted for placement of rectal tube. Fecal incontinence containment device placed without difficulty
[2022-03-02] VITALS (22 sets, daily range): BP systolic 82–109; BP diastolic 40–57
[2022-03-02] MEDS: piperacillin/tazo 3.375gm/50ml 50 ML IV SCH ×2 (00:43→14:05)
[2022-03-02] MEDS: insulin regular, human U-100 3ml vial - multi-dose SQ SCH ×2 (02:32→21:20)
[2022-03-02] MEDS: ipratropium/albuterol 3ml nebule IH SCH ×4 (03:11→20:20)
[2022-03-02 03:12] LABS: BASOPHILS # (AUTO) 0.1 X10'3 (0-0.2); BASOPHILS % (AUTO) 0.4 % (0-1); EOSINOPHILS % (AUTO) 0 % (0-6); HEMATOCRIT 26.4 % (42.0-52.0); HEMOGLOBIN 8.5 g/dl (14.0-17.9); LYMPHOCYTES # (AUTO) 0.3 X10'3 (1.1-4.8); MEAN CORPUSCULAR HEMOGLOBIN 31.5 PG (27.0-31.0); MEAN CORPUSCULAR HGB CONC 32.3 g/dL (33.0-36.5); MEAN CORPUSCULAR VOLUME 97.6 FL (78-98); MEAN PLATELET VOLUME 7.3 FL (7.4-10.4); MONOCYTES # (AUTO) 0.8 X10'3 (0-0.9); MONOCYTES % (AUTO) 2.9 % (2-12); NEUTROPHILS # (AUTO) 24.8 X10'3 (1.8-7.7); NEUTROPHILS % (AUTO) 95.7 % (42-75); PLATELET COUNT 245 X10'3 (140-440); RED BLOOD COUNT 2.71 X10'6 (4.70-6.10); RED CELL DISTRIBUTION WIDTH 16.2 % (11.5-14.5)
[2022-03-02] MEDS: VANCOMYCIN LEVEL IV SCH (03:13)
[2022-03-02] MEDS: dextrose 5%-water 1,000 ML IV SCH (03:13)
[2022-03-02 03:17] LABS: WHITE BLOOD COUNT 25.9 X10'3 (4.5-11.0)
[2022-03-02 03:23] LABS: ALBUMIN 1.5 G/DL (3.4-5.0); ANION GAP 9 (8-16); BLOOD UREA NITROGEN 72 MG/DL (7-18); BUN/CREATININE RATIO 30.3 (5.4-32.0); CALCIUM 7.6 MG/DL (8.5-10.1); CHLORIDE 112 MMOL/L (99-107); CREATININE 2.38 MG/DL (0.60-1.10); GLUCOSE 179 MG/DL (70-104); POTASSIUM 3.5 MMOL/L (3.5-5.1); SODIUM 145 MMOL/L (135-145); TOTAL CARBON DIOXIDE 23.6 MMOL/L (24-32); eGFR 26 ML/MIN
[2022-03-02 04:25] LABS: TOTAL CELLS COUNTED 100
[2022-03-02 04:26] LABS: ANISOCYTOSIS 1+; PLATELET ESTIMATE NORMAL
[2022-03-02 04:27] LABS: POLYCHROMASIA FEW; SCHISTOCYTES FEW
[2022-03-02] MEDS: K and/or MAG REPLACEMENT MC SCH (08:00)
[2022-03-02] MEDS: finasteride 5mg tablet PO SCH (08:00)
[2022-03-02] MEDS: docusate sodium 100mg/10ml UD cup NG SCH ×2 (08:01→20:00)
[2022-03-02] MEDS: QUEtiapine 25mg tablet PO SCH (08:02)
[2022-03-02] MEDS: olanzapine 10mg tablet NG SCH ×2 (08:02→21:48)
[2022-03-02] MEDS: celeCOXIB 100mg capsule NG SCH ×2 (08:02→21:47)
[2022-03-02] MEDS: pantoprazole 40MG/NS 100ML BAG 100 ML IV SCH (08:02)
[2022-03-02] MEDS: heparin, porcine 5000 units/ml vial SQ SCH ×2 (08:02→21:49)
[2022-03-02] MEDS: allopurinol 100mg tablet NG SCH (08:02)
[2022-03-02] MEDS: PARoxetine 10mg tablet NG SCH (08:02)
[2022-03-02] MEDS: ezetimibe 10mg tablet NG SCH (08:02)
[2022-03-02] MEDS: levoTHYROXINE 100mcg tablet NG SCH (08:03)
[2022-03-02] MEDS: budesonide 0.5mg/2ml UD nebule IH SCH ×2 (09:00→20:20)
--- NOTE | 2022-03-02 09:00 | NUR ---
PATIENT TAKEN DOWN TO [facility] FOR HIDA SCAN.
--- NOTE | 2022-03-02 12:23 | NUR ---
pt to nuc med on monitor with RN, 92/45, HR 94, RR 24, 93% on hiflow 02 at 8 liters, pt is resting quietly on bed, resp even and unlabored,
--- NOTE | 2022-03-02 13:37 | NUR ---
PER DR DEAL LEAVE PATIENT NPO, FOR SURGERY CONSULT.
[2022-03-02] MEDS: ferrous sulfate 300mg/5ml UD oral liquid NG SCH (14:05)
[2022-03-02] MEDS ORDERED: albumin (Human) 5% 250ml 250 ML IV ONE (14:05)
[2022-03-02] MEDS ORDERED: LIDOCAINE 1% w/preservative (10 MG/ML) inj. 10mL VIAL ONE (14:48)
--- NOTE | 2022-03-02 20:00 | NUR ---
xray results noting NGT coiled in stomach. [place] Sump visibly coiled in back of throat. [place] sump withdrawn approximately 10cm. No longer visible in back of throat. stomach contents aspirated. tube secured and repeat KUB done for placement verification
[2022-03-02] MEDS: insulin glargine (Lantus) pen - multi-dose SQ SCH (21:21)
--- NOTE | 2022-03-02 21:30 | NUR ---
KUB shows NGT still coiled in stomach, no longer visible in back of throat. Call in to Dr. Farmer to report. orders noted to procede with tube feeding per xray confirmation of tube in stomach
[2022-03-02] MEDS: Melatonin 3mg tablet NG SCH (21:47)
[2022-03-02] MEDS: atorvastatin 20mg tablet NG SCH (21:47)
[2022-03-02] MEDS: traZODone 50mg tablet NG SCH (21:48)
[2022-03-02] MEDS: QUEtiapine 25mg tablet NG SCH (21:48)
[2022-03-03] VITALS (60 sets, daily range): BP systolic 74–130; BP diastolic 34–69
--- NOTE | 2022-03-03 01:00 | NUR ---
U/o 0ml for the last hour. BPS 80s. Call in to Dr. Farmer with orders noted
[2022-03-03] MEDS ORDERED: albumin (Human) 5% 250ml 500 ML IV ONE (01:09)
[2022-03-03] MEDS ORDERED: albumin (Human) 5% 250ml 250 ML IV ONE ×4 (01:10→04:50)
[2022-03-03] MEDS: piperacillin/tazo 3.375gm/50ml 50 ML IV SCH ×3 (01:12→23:51)
[2022-03-03] MEDS: VANCOMYCIN LEVEL IV SCH (02:38)
[2022-03-03] MEDS: insulin regular, human U-100 3ml vial - multi-dose SQ SCH ×3 (02:46→14:41)
[2022-03-03] MEDS: dextrose 5%-water 1,000 ML IV SCH (02:59)
[2022-03-03 03:23] LABS: BASOPHILS % (AUTO) 0 % (0-1); EOSINOPHILS % (AUTO) 0 % (0-6); HEMATOCRIT 25.7 % (42.0-52.0); LYMPHOCYTES # (AUTO) 0.4 X10'3 (1.1-4.8); LYMPHOCYTES % (AUTO) 1.1 % (21-51); MEAN CORPUSCULAR HEMOGLOBIN 30.4 PG (27.0-31.0); MEAN CORPUSCULAR HGB CONC 31.1 g/dL (33.0-36.5); MEAN CORPUSCULAR VOLUME 97.7 FL (78-98); MONOCYTES # (AUTO) 0.7 X10'3 (0-0.9); MONOCYTES % (AUTO) 2.3 % (2-12); NEUTROPHILS # (AUTO) 30.6 X10'3 (1.8-7.7); NEUTROPHILS % (AUTO) 96.6 % (42-75); PLATELET COUNT 219 X10'3 (140-440); RED BLOOD COUNT 2.63 X10'6 (4.70-6.10); RED CELL DISTRIBUTION WIDTH 16.5 % (11.5-14.5)
[2022-03-03] MEDS: ipratropium/albuterol 3ml nebule IH SCH ×4 (03:23→21:12)
[2022-03-03 03:28] LABS: ALBUMIN 1.7 G/DL (3.4-5.0); ANION GAP 12 (8-16); BLOOD UREA NITROGEN 78 MG/DL (7-18); BUN/CREATININE RATIO 30.7 (5.4-32.0); CALCIUM 7.4 MG/DL (8.5-10.1); CHLORIDE 109 MMOL/L (99-107); CREATININE 2.54 MG/DL (0.60-1.10); GLUCOSE 196 MG/DL (70-104); MAGNESIUM 2.3 MG/DL (1.5-2.4); POTASSIUM 3.8 MMOL/L (3.5-5.1); SODIUM 144 MMOL/L (135-145); TOTAL CARBON DIOXIDE 22.6 MMOL/L (24-32); eGFR 24 ML/MIN
[2022-03-03 03:29] LABS: WHITE BLOOD COUNT 31.7 X10'3 (4.5-11.0)
[2022-03-03 05:08] LABS: PLATELET ESTIMATE NORMAL; TOTAL CELLS COUNTED 100
[2022-03-03 05:09] LABS: ANISOCYTOSIS 1+; POLYCHROMASIA FEW; SCHISTOCYTES FEW; TEAR DROP CELLS FEW
[2022-03-03] MEDS: NORepinephrine 8mg/ 250ml NS 250 ML IV PRN ×2 (05:19→20:09)
[2022-03-03] MEDS: celeCOXIB 100mg capsule NG SCH ×2 (08:02→20:09)
[2022-03-03] MEDS: pantoprazole 40MG/NS 100ML BAG 100 ML IV SCH (08:02)
[2022-03-03] MEDS: PARoxetine 10mg tablet NG SCH (08:03)
[2022-03-03] MEDS: ezetimibe 10mg tablet NG SCH (08:03)
[2022-03-03] MEDS: olanzapine 10mg tablet NG SCH ×2 (08:03→20:09)
[2022-03-03] MEDS: finasteride 5mg tablet PO SCH (08:03)
[2022-03-03] MEDS: QUEtiapine 25mg tablet NG SCH ×2 (08:03→20:09)
[2022-03-03] MEDS: heparin, porcine 5000 units/ml vial SQ SCH ×2 (08:03→20:12)
[2022-03-03] MEDS: allopurinol 100mg tablet NG SCH (08:03)
[2022-03-03] MEDS: levoTHYROXINE 100mcg tablet NG SCH (08:03)
[2022-03-03] MEDS: docusate sodium 100mg/10ml UD cup NG SCH ×2 (08:06→20:00)
[2022-03-03] MEDS: budesonide 0.5mg/2ml UD nebule IH SCH ×2 (08:19→21:12)
--- NOTE | 2022-03-03 10:56 | NUR ---
F/u 03/03: Pt remains on NGTF tolerating at goal. TF off yesterday for imaging s/p cholecystostomy tube for cholecystitis though restarted to goal last night per EMR. Serum Na WNL w/ D5 now stopped per RN during RD rounds this AM. Rectal tube now in place w/ first BM yesterday -450ml following lactulose and continues to receive routine colace per EMR. Will continue to monitor. Rec: 1. Continuous TF per MD using Vital AF at 65ml/hr goal; to provide 1560ml volume/day, 1872 kcals, 117g protein, and 1265ml water. 2. additional water flush 200ml Q4H; monitor serum Na for adjustment needs 3. PALB Q /; daily wts 4. monitor for future wt and PALB trends for EN adjustment needs 5. routine bowel care 6. advance diet as medically indicated to regular per HOUSEHOLD COORDINATOR/MD recs given age Addendum: 03/03/22 at [address] Amended: Links added.
[2022-03-03] MEDS: ferrous sulfate 300mg/5ml UD oral liquid NG SCH (12:32)
[2022-03-03] MEDS: linezolid 600mg/300ml PREMIX 300 ML IV SCH (15:54)
[2022-03-03] MEDS: metoprolol tartrate 1mg/ml inj IV ONE ×2 (16:20→16:24)
[2022-03-03 16:30] LABS: AMYLASE 41 U/L (25-115); LIPASE 80 U/L (73-393)
[2022-03-03] MEDS ORDERED: phenylephrine inj 50 MG in normal saline 250ml IV soln 250 ML IV SCH (16:45)
[2022-03-03 17:34] LABS: BASOPHILS % (AUTO) 0 % (0-1); EOSINOPHILS % (AUTO) 0.1 % (0-6); HEMATOCRIT 25.5 % (42.0-52.0); LYMPHOCYTES # (AUTO) 0.3 X10'3 (1.1-4.8); LYMPHOCYTES % (AUTO) 0.9 % (21-51); MEAN CORPUSCULAR HGB CONC 31.2 g/dL (33.0-36.5); MEAN CORPUSCULAR VOLUME 99.5 FL (78-98); MONOCYTES # (AUTO) 1.1 X10'3 (0-0.9); MONOCYTES % (AUTO) 3.3 % (2-12); NEUTROPHILS % (AUTO) 95.7 % (42-75); PLATELET COUNT 197 X10'3 (140-440); RED BLOOD COUNT 2.56 X10'6 (4.70-6.10); RED CELL DISTRIBUTION WIDTH 17.2 % (11.5-14.5)
[2022-03-03 17:37] LABS: WHITE BLOOD COUNT 32.4 X10'3 (4.5-11.0)
--- NOTE | 2022-03-03 17:42 | NUR ---
Patient is on 0.15 of levophed currently and tachycardic in the high 120's. WBC count still trending up. Patient had sustained HR of 170's-180's just recently and randomly throughout day, sustained for short periods of time. Labs redrawn and EKG ordered. 500 ml LR given via verbal order from cooling pipe inspector, and plans to switch from levophed to fang for hypotension to control heart rate. Patient is still only responsive to pain and not opening eyes.
[2022-03-03 17:44] LABS: ALANINE AMINOTRANSFERASE 21 U/L (12-78); ALBUMIN 2.1 G/DL (3.4-5.0); ALBUMIN/GLOBULIN RATIO 0.5 (1.1-1.5); ALKALINE PHOSPHATASE 85 IU/L (46-116); ANION GAP 10 (8-16); ASPARTATE AMINO TRANSFERASE 22 U/L (10-37); BILIRUBIN,TOTAL 0.8 MG/DL (0.1-1.0); BLOOD UREA NITROGEN 78 MG/DL (7-18); BUN/CREATININE RATIO 28.2 (5.4-32.0); CALCIUM 7.3 MG/DL (8.5-10.1); CHLORIDE 112 MMOL/L (99-107); CREATININE 2.77 MG/DL (0.60-1.10); GLUCOSE 158 MG/DL (70-104); POTASSIUM 3.8 MMOL/L (3.5-5.1); SODIUM 144 MMOL/L (135-145); TOTAL CARBON DIOXIDE 21.9 MMOL/L (24-32); eGFR 22 ML/MIN
[2022-03-03] MEDS: atorvastatin 20mg tablet NG SCH (20:09)
[2022-03-03] MEDS: traZODone 50mg tablet NG SCH (20:09)
[2022-03-03] MEDS: Melatonin 3mg tablet NG SCH (20:10)
[2022-03-03] MEDS ORDERED: acetylcysteine 200 MG/ml 4ml vial INH ONE (20:35)
[2022-03-03] MEDS: insulin glargine (Lantus) pen - multi-dose SQ SCH (20:53)
[2022-03-03] MEDS: phenylephrine inj 50 MG in normal saline 250ml IV soln 245 ML IV SCH (20:55)
--- NOTE | 2022-03-03 20:55 | NUR ---
called MD Heller to confirm phenyleprhine. Pt lung sounds coarse. Copius secretions. Decreased GFR. Urine output poor. Called SOC for MD to take a look at pts condition. Confirm to switch to phenylephrine and stop leveophed
[2022-03-03] MEDS: albuterol 1.25 MG/3 ML (1/2 strength) nebule NEB SCH (22:49)
[2022-03-04] VITALS (31 sets, daily range): BP systolic 87–127; BP diastolic 41–66
[2022-03-04] MEDS: ipratropium/albuterol 3ml nebule IH SCH ×4 (03:13→19:42)
[2022-03-04] MEDS: dextrose 5%-water 1,000 ML IV SCH (03:20)
[2022-03-04] MEDS: phenylephrine inj 50 MG in normal saline 250ml IV soln 245 ML IV SCH ×2 (03:30→15:59)
[2022-03-04 03:40] LABS: BASOPHILS # (AUTO) 0.1 X10'3 (0-0.2); BASOPHILS % (AUTO) 0.2 % (0-1); EOSINOPHILS # (AUTO) 0.1 X10'3 (0-0.9); EOSINOPHILS % (AUTO) 0.3 % (0-6); HEMATOCRIT 26.5 % (42.0-52.0); HEMOGLOBIN 8.1 g/dl (14.0-17.9); LYMPHOCYTES # (AUTO) 0.5 X10'3 (1.1-4.8); LYMPHOCYTES % (AUTO) 1.5 % (21-51); MEAN CORPUSCULAR HEMOGLOBIN 29.7 PG (27.0-31.0); MEAN CORPUSCULAR HGB CONC 30.8 g/dL (33.0-36.5); MEAN CORPUSCULAR VOLUME 96.7 FL (78-98); MEAN PLATELET VOLUME 7.6 FL (7.4-10.4); MONOCYTES # (AUTO) 1.2 X10'3 (0-0.9); MONOCYTES % (AUTO) 3.5 % (2-12); NEUTROPHILS # (AUTO) 32.9 X10'3 (1.8-7.7); NEUTROPHILS % (AUTO) 94.5 % (42-75); PLATELET COUNT 314 X10'3 (140-440); RED BLOOD COUNT 2.74 X10'6 (4.70-6.10)
[2022-03-04 03:54] LABS: ALBUMIN 1.8 G/DL (3.4-5.0); ANION GAP 9 (8-16); BLOOD UREA NITROGEN 88 MG/DL (7-18); BUN/CREATININE RATIO 31.4 (5.4-32.0); CALCIUM 7.7 MG/DL (8.5-10.1); CHLORIDE 113 MMOL/L (99-107); GLUCOSE 139 MG/DL (70-104); MAGNESIUM 2.2 MG/DL (1.5-2.4); POTASSIUM 3.6 MMOL/L (3.5-5.1); SODIUM 145 MMOL/L (135-145); TOTAL CARBON DIOXIDE 23.2 MMOL/L (24-32); eGFR 22 ML/MIN
[2022-03-04 04:15] LABS: WHITE BLOOD COUNT 34.8 X10'3 (4.5-11.0)
[2022-03-04 06:13] LABS: ANISOCYTOSIS 1+; PLATELET ESTIMATE NORMAL; TOTAL CELLS COUNTED 100
[2022-03-04 06:14] LABS: POIKILOCYTOSIS FEW
[2022-03-04] MEDS: albuterol 1.25 MG/3 ML (1/2 strength) nebule NEB SCH (07:00)
[2022-03-04] MEDS ORDERED: propofol 1000mg/100ml bottle 100 ML IV ONE (07:10)
[2022-03-04] MEDS ORDERED: SODIUM CHLORIDE ONE (07:15)
[2022-03-04] MEDS ORDERED: dexmedetomidine/D5W 100mL 100 ML IV ONE (07:15)
[2022-03-04] MEDS ORDERED: FENTANYL ONE (07:15)
[2022-03-04] MEDS ORDERED: midazolam 1 mg/ML 2ml injection ONE (07:19)
[2022-03-04] MEDS: heparin, porcine 5000 units/ml vial SQ SCH ×3 (08:00→19:49)
[2022-03-04] MEDS: budesonide 0.5mg/2ml UD nebule IH SCH ×2 (08:34→19:43)
[2022-03-04] MEDS: ezetimibe 10mg tablet NG SCH (08:35)
[2022-03-04] MEDS: docusate sodium 100mg/10ml UD cup NG SCH ×2 (08:35→19:23)
[2022-03-04] MEDS: celeCOXIB 100mg capsule NG SCH ×2 (08:36→19:23)
[2022-03-04] MEDS: QUEtiapine 25mg tablet NG SCH ×2 (08:38→19:23)
[2022-03-04] MEDS: insulin regular, human U-100 3ml vial - multi-dose SQ SCH ×2 (08:38→14:53)
[2022-03-04] MEDS: olanzapine 10mg tablet NG SCH ×2 (08:38→22:16)
[2022-03-04] MEDS: PARoxetine 10mg tablet NG SCH (08:39)
[2022-03-04] MEDS: linezolid 600mg/300ml PREMIX 300 ML IV SCH ×2 (08:39→19:29)
[2022-03-04] MEDS: pantoprazole 40MG/NS 100ML BAG 100 ML IV SCH (08:39)
[2022-03-04] MEDS: allopurinol 100mg tablet NG SCH (08:39)
[2022-03-04] MEDS: finasteride 5mg tablet PO SCH (08:42)
[2022-03-04] MEDS: levoTHYROXINE 100mcg tablet NG SCH (08:42)
--- NOTE | 2022-03-04 10:16 | NUR ---
Noted pt receiving Linezolid though low tyramine nutrition therapy education not appropriate as pt currently TF dependent and not A/O with h/o dementia. Will continue to follow. Addendum: 03/04/22 at [address] Amended: Links added.
[2022-03-04] MEDS: ferrous sulfate 300mg/5ml UD oral liquid NG SCH (13:34)
[2022-03-04] MEDS: meropenem inj 500 MG in normal saline 100ml IV soln 100 ML IV SCH (13:34)
[2022-03-04] MEDS: insulin glargine (Lantus) pen - multi-dose SQ SCH (20:11)
[2022-03-04] MEDS: atorvastatin 20mg tablet NG SCH (22:17)
[2022-03-04] MEDS: traZODone 50mg tablet NG SCH (22:17)
[2022-03-04] MEDS: Melatonin 3mg tablet NG SCH (22:17)
[2022-03-05] VITALS (24 sets, daily range): BP systolic 92–118; BP diastolic 45–68
[2022-03-05] MEDS: dextrose 5%-water 1,000 ML IV SCH ×2 (00:15→19:20)
[2022-03-05] MEDS: meropenem inj 500 MG in normal saline 100ml IV soln 100 ML IV SCH ×3 (00:38→20:44)
[2022-03-05] MEDS: phenylephrine inj 50 MG in normal saline 250ml IV soln 245 ML IV SCH ×3 (01:27→15:05)
[2022-03-05 01:54] LABS: ABG BASE EXCESS -4.5 mmol/L (-2.0-2.0); ABG OXYGEN SATURATION 87.6 % (94-97); ABG PCO2 (T) 34.3 mmHg (35.0-48.0); ABG PO2 (T) 54.1 mmHg (75.0-100.0); FCOHb 0.3 % (0.0-3.9); FMetHb 0.1 % (0.0-1.5); FO2Hb 87.2 % (94-97); TOTAL HEMOGLOBIN 9.2 G/dl (14.0-18.0)
[2022-03-05] MEDS: ipratropium/albuterol 3ml nebule IH SCH ×4 (02:46→21:13)
[2022-03-05 03:53] LABS: ALBUMIN 1.4 G/DL (3.4-5.0); ANION GAP 9 (8-16); BLOOD UREA NITROGEN 82 MG/DL (7-18); BUN/CREATININE RATIO 34.2 (5.4-32.0); CHLORIDE 116 MMOL/L (99-107); GLUCOSE 155 MG/DL (70-104); POTASSIUM 3.5 MMOL/L (3.5-5.1); SODIUM 146 MMOL/L (135-145); eGFR 26 ML/MIN
[2022-03-05 04:57] LABS: BASOPHILS # (AUTO) 0.1 X10'3 (0-0.2); BASOPHILS % (AUTO) 0.3 % (0-1); EOSINOPHILS # (AUTO) 0.1 X10'3 (0-0.9); EOSINOPHILS % (AUTO) 0.4 % (0-6); HEMATOCRIT 25.3 % (42.0-52.0); LYMPHOCYTES # (AUTO) 0.3 X10'3 (1.1-4.8); LYMPHOCYTES % (AUTO) 1.2 % (21-51); MEAN CORPUSCULAR HEMOGLOBIN 30.7 PG (27.0-31.0); MEAN CORPUSCULAR HGB CONC 31.8 g/dL (33.0-36.5); MEAN CORPUSCULAR VOLUME 96.3 FL (78-98); MONOCYTES # (AUTO) 1.5 X10'3 (0-0.9); NEUTROPHILS # (AUTO) 23.1 X10'3 (1.8-7.7); NEUTROPHILS % (AUTO) 92.1 % (42-75); PLATELET COUNT 278 X10'3 (140-440); RED BLOOD COUNT 2.62 X10'6 (4.70-6.10); RED CELL DISTRIBUTION WIDTH 16.7 % (11.5-14.5)
[2022-03-05 05:15] LABS: WHITE BLOOD COUNT 25.1 X10'3 (4.5-11.0)
[2022-03-05 06:44] LABS: TOTAL CELLS COUNTED 100
[2022-03-05 06:45] LABS: PLATELET ESTIMATE NORMAL
[2022-03-05 06:46] LABS: ACANTHOCYTES FEW; ANISOCYTOSIS 1+; BURR CELLS FEW; ELLIPTOCYTES 1+; TEAR DROP CELLS FEW
[2022-03-05] MEDS: budesonide 0.5mg/2ml UD nebule IH SCH ×2 (07:09→21:13)
[2022-03-05] MEDS: QUEtiapine 25mg tablet NG SCH ×2 (08:21→20:44)
[2022-03-05] MEDS: celeCOXIB 100mg capsule NG SCH ×2 (08:21→20:44)
[2022-03-05] MEDS: PARoxetine 10mg tablet NG SCH (08:21)
[2022-03-05] MEDS: docusate sodium 100mg/10ml UD cup NG SCH ×2 (08:21→20:45)
[2022-03-05] MEDS: allopurinol 100mg tablet NG SCH (08:21)
[2022-03-05] MEDS: finasteride 5mg tablet PO SCH (08:21)
[2022-03-05] MEDS: olanzapine 10mg tablet NG SCH ×2 (08:21→20:45)
[2022-03-05] MEDS: ezetimibe 10mg tablet NG SCH (08:21)
[2022-03-05] MEDS: insulin regular, human U-100 3ml vial - multi-dose SQ SCH ×3 (08:21→21:09)
[2022-03-05] MEDS: pantoprazole 40MG/NS 100ML BAG 100 ML IV SCH (08:22)
[2022-03-05] MEDS: heparin, porcine 5000 units/ml vial SQ SCH ×2 (08:22→20:43)
[2022-03-05] MEDS: levoTHYROXINE 100mcg tablet NG SCH (08:46)
[2022-03-05] MEDS: linezolid 600mg/300ml PREMIX 300 ML IV SCH ×2 (10:00→20:51)
[2022-03-05] MEDS: ferrous sulfate 300mg/5ml UD oral liquid NG SCH (12:14)
[2022-03-05] MEDS: acetaminophen 325mg/10.15ml oral unit dose solution NG PRN (14:45)
--- NOTE | 2022-03-05 17:59 | NUR ---
Attempted to have pt. use the Incentive Spirometer. Pt. unable to grasp the concept at this time.
--- NOTE | 2022-03-05 18:30 | NUR ---
Patient in room ICU 2037. I have received report from Mildred PARADA and had the opportunity to ask questions and assume patient care.
[2022-03-05] MEDS: traZODone 50mg tablet NG SCH (20:43)
[2022-03-05] MEDS: atorvastatin 20mg tablet NG SCH (20:45)
[2022-03-05] MEDS: Melatonin 3mg tablet NG SCH (20:45)
[2022-03-05] MEDS: insulin glargine (Lantus) pen - multi-dose SQ SCH (21:08)
[2022-03-06] VITALS (29 sets, daily range): BP systolic 77–144; BP diastolic 30–67
[2022-03-06 02:09] LABS: ABG BASE EXCESS -7.9 mmol/L (-2.0-2.0); ABG HCO3 20.7 mmol/L (22.0-26.0); ABG OXYGEN SATURATION 95.3 % (94-97); ABG PO2 (T) 108.6 mmHg (75.0-100.0); ALLEN'S TEST POSITIVE; FCOHb 0.3 % (0.0-3.9); FMetHb 0.3 % (0.0-1.5); FO2Hb 94.7 % (94-97); PATIENT TEMPERATURE 39.3; TOTAL HEMOGLOBIN 8.6 G/dl (14.0-18.0)
[2022-03-06] MEDS: acetaminophen 325mg/10.15ml oral unit dose solution NG PRN ×3 (02:09→21:11)
[2022-03-06] MEDS: ipratropium/albuterol 3ml nebule IH SCH ×4 (02:36→21:11)
[2022-03-06 02:46] LABS: ALBUMIN 1.4 G/DL (3.4-5.0); ANION GAP 9 (8-16); BLOOD UREA NITROGEN 96 MG/DL (7-18); CALCIUM 7.2 MG/DL (8.5-10.1); CHLORIDE 114 MMOL/L (99-107); CREATININE 2.82 MG/DL (0.60-1.10); GLUCOSE 199 MG/DL (70-104); POTASSIUM 4.8 MMOL/L (3.5-5.1); PREALBUMIN 6.7 MG/DL (19-36); SODIUM 146 MMOL/L (135-145); TOTAL CARBON DIOXIDE 22.9 MMOL/L (24-32); eGFR 22 ML/MIN
[2022-03-06 02:47] LABS: BASOPHILS # (AUTO) 0.1 X10'3 (0-0.2); BASOPHILS % (AUTO) 0.4 % (0-1); EOSINOPHILS % (AUTO) 0 % (0-6); HEMATOCRIT 24.9 % (42.0-52.0); HEMOGLOBIN 7.6 g/dl (14.0-17.9); LYMPHOCYTES # (AUTO) 0.1 X10'3 (1.1-4.8); LYMPHOCYTES % (AUTO) 0.7 % (21-51); MEAN CORPUSCULAR HEMOGLOBIN 30.6 PG (27.0-31.0); MEAN CORPUSCULAR HGB CONC 30.7 g/dL (33.0-36.5); MEAN CORPUSCULAR VOLUME 99.4 FL (78-98); MEAN PLATELET VOLUME 7.9 FL (7.4-10.4); MONOCYTES # (AUTO) 1.4 X10'3 (0-0.9); MONOCYTES % (AUTO) 6.7 % (2-12); NEUTROPHILS # (AUTO) 19.1 X10'3 (1.8-7.7); NEUTROPHILS % (AUTO) 92.2 % (42-75); PLATELET COUNT 248 X10'3 (140-440); WHITE BLOOD COUNT 20.7 X10'3 (4.5-11.0)
[2022-03-06] MEDS: insulin regular, human U-100 3ml vial - multi-dose SQ SCH ×3 (02:57→20:45)
[2022-03-06] MEDS: phenylephrine inj 50 MG in normal saline 250ml IV soln 245 ML IV SCH ×2 (03:44→08:08)
[2022-03-06 04:09] LABS: ABG BASE EXCESS -5.5 mmol/L (-2.0-2.0); ABG HCO3 19.1 mmol/L (22.0-26.0); ABG OXYGEN SATURATION 93.2 % (94-97); ABG PCO2 (T) 36.7 mmHg (35.0-48.0); ABG PO2 (T) 77.2 mmHg (75.0-100.0); ALLEN'S TEST POSITIVE; FMetHb 0.3 % (0.0-1.5); FO2Hb 92.9 % (94-97); RESPIRATORY RATE 10 b/min; TOTAL HEMOGLOBIN 8.7 G/dl (14.0-18.0)
--- NOTE | 2022-03-06 05:47 | NUR ---
Pt was steadily declining on HI-flow. An ABG was ordered and Bipap was initiated d/t results. Pt had another ABG done two hours later and ABG's had corrected.
[2022-03-06] MEDS: levoTHYROXINE 100mcg tablet NG SCH (07:19)
[2022-03-06] MEDS: pantoprazole 40MG/NS 100ML BAG 100 ML IV SCH (07:50)
[2022-03-06] MEDS: olanzapine 10mg tablet NG SCH ×2 (08:00→20:14)
[2022-03-06] MEDS: QUEtiapine 25mg tablet NG SCH ×2 (08:00→20:14)
[2022-03-06] MEDS: PARoxetine 10mg tablet NG SCH (08:00)
[2022-03-06] MEDS: docusate sodium 100mg/10ml UD cup NG SCH ×2 (08:00→20:13)
[2022-03-06] MEDS: finasteride 5mg tablet PO SCH (08:00)
[2022-03-06 08:19] LABS: ABG BASE EXCESS -8.6 mmol/L (-2.0-2.0); ABG HCO3 15.2 mmol/L (22.0-26.0); ABG OXYGEN SATURATION 93.2 % (94-97); ABG PCO2 (T) 26.5 mmHg (35.0-48.0); ABG PO2 (T) 74.1 mmHg (75.0-100.0); ALLEN'S TEST POSITIVE; FCOHb 0.1 % (0.0-3.9); FO2Hb 93.1 % (94-97); RESPIRATORY RATE 10 b/min; TIDAL VOLUME 646 mL; TOTAL HEMOGLOBIN 8.4 G/dl (14.0-18.0)
[2022-03-06] MEDS: meropenem inj 500 MG in normal saline 100ml IV soln 100 ML IV SCH ×2 (08:19→20:12)
[2022-03-06] MEDS: budesonide 0.5mg/2ml UD nebule IH SCH ×2 (08:26→21:11)
[2022-03-06] MEDS: ezetimibe 10mg tablet NG SCH (08:39)
[2022-03-06] MEDS: linezolid 600mg/300ml PREMIX 300 ML IV SCH ×2 (08:39→20:12)
[2022-03-06] MEDS: heparin, porcine 5000 units/ml vial SQ SCH ×2 (08:40→20:13)
[2022-03-06] MEDS: celeCOXIB 100mg capsule NG SCH ×2 (08:43→20:13)
[2022-03-06] MEDS: allopurinol 100mg tablet NG SCH (08:48)
--- NOTE | 2022-03-06 09:35 | NUR ---
Assumed care of patient in AM. Patient obtunded, only responsive to deep pain (see EMR for full assessment) on bipap with RR in 35-40s. Touched base with MD scanlon on plan of care. Holding zyprexa, paxil and seroquel r/t neuro status. ABG and lactic acid ordered and sent. plan to speak with son.
[2022-03-06 11:52] LABS: MAGNESIUM 2.4 MG/DL (1.5-2.4); PHOSPHORUS 5.7 MG/DL (2.3-4.5)
--- NOTE | 2022-03-06 13:38 | NUR ---
F/u 03/06: Pt now BIPAP dependent tolerating NGTF at goal GRV WNL. Pt may require intubation pending family discussion on goals of care per information security analyst. TF to be held at this time in case intubation per information security analyst at rounds. Noted PALB 6.7mg/dl this AM down from 7.0mg/dl 03/02; possibly impacted by positive 11L cumulative fluid balance this admit w/ subsequent 10kg wt gain per EMR. Will use updated wt for EN recs given PALB ranges and monitor for EN tolerance; MD notified. LBM 03/03 -450ml following lactulose on 03/01 and dulcolax suppository 03/03 currently receiving routine colace per EMR. Will monitor for further nutrition intervention needs this admit. Rec: 1. Continuous TF per MD using Vital AF at 75ml/hr goal; to provide 1800ml volume/day, 2160 kcals, 135g protein, and 1460ml water. 2. additional water flush 200ml Q4H; monitor serum Na for adjustment needs 3. PALB Q /; daily wts 4. monitor for future wt and PALB trends for EN adjustment needs 5. routine bowel care 6. advance diet as medically indicated to regular per CUSTOMER TRAINING SPECIALIST/MD recs given age Addendum: 03/06/22 at [address] Amended: Links added.
[2022-03-06] MEDS: propofol 1000mg/100ml bottle 100 ML IV SCH ×2 (14:16→19:57)
--- NOTE | 2022-03-06 14:21 | NUR ---
Son and daughter at MD law obtained consent for intubation and bronchoscopy. Intubated by MD Hopper @1350 with 75 of Rocuronium and 20 of Etomidate. RT at bedside. Bronch completed samples sent.
[2022-03-06] MEDS: ferrous sulfate 300mg/5ml UD oral liquid NG SCH (14:39)
[2022-03-06] MEDS ORDERED: potassium Cl 20 mEq SR tablet NG PRN ×2 (15:06→15:09)
[2022-03-06 15:09] LABS: TRIGLYCERIDES 54 MG/DL (20-135)
[2022-03-06 15:17] LABS: ABG BASE EXCESS -7.1 mmol/L (-2.0-2.0); ABG HCO3 18.6 mmol/L (22.0-26.0); ABG OXYGEN SATURATION 88.1 % (94-97); ABG PCO2 (T) 40.9 mmHg (35.0-48.0); ABG PO2 (T) 65.6 mmHg (75.0-100.0); ALLEN'S TEST POSITIVE; FCOHb 0.3 % (0.0-3.9); FMetHb 0.1 % (0.0-1.5); FO2Hb 87.7 % (94-97); PATIENT TEMPERATURE 38.6; PEEP 12 cm H2O; RESPIRATORY RATE 24 b/min; TIDAL VOLUME 450 mL; TOTAL HEMOGLOBIN 9.1 G/dl (14.0-18.0)
--- NOTE | 2022-03-06 17:00 | NUR ---
MD aware of patient decreased urine output
[2022-03-06 17:20] LABS: SODIUM,URINE RANDOM < 15 MEQ/L; TOTAL PROTEIN,URINE RANDOM 118.7 MG/DL
[2022-03-06] MEDS ORDERED: NORepinephrine inj. 8 MG in dextrose 5%-water 242 ML IV SCH (18:20)
[2022-03-06] MEDS: NORepinephrine 8mg/ 250ml NS 250 ML IV SCH (18:55)
[2022-03-06] MEDS: traZODone 50mg tablet NG SCH (20:13)
[2022-03-06] MEDS: Melatonin 3mg tablet NG SCH (20:14)
[2022-03-06] MEDS: atorvastatin 20mg tablet NG SCH (20:14)
[2022-03-06] MEDS: insulin glargine (Lantus) pen - multi-dose SQ SCH (20:39)
[2022-03-06] MEDS ORDERED: normal saline 500ml IV soln 500 ML IV ONE (23:50)
[2022-03-07] VITALS (39 sets, daily range): BP systolic 89–147; BP diastolic 52–77
[2022-03-07] MEDS: ipratropium/albuterol 3ml nebule IH SCH ×4 (03:41→20:41)
[2022-03-07] MEDS: propofol 1000mg/100ml bottle 100 ML IV SCH ×2 (03:50→07:50)
[2022-03-07 03:58] LABS: ABG BASE EXCESS -10.3 mmol/L (-2.0-2.0); ABG HCO3 15.4 mmol/L (22.0-26.0); ABG OXYGEN SATURATION 98.7 % (94-97); ABG PCO2 (T) 32.3 mmHg (35.0-48.0); ABG PO2 (T) 144.7 mmHg (75.0-100.0); ALLEN'S TEST POSITIVE; FCOHb 0.3 % (0.0-3.9); FMetHb 0.1 % (0.0-1.5); FO2Hb 98.3 % (94-97); PATIENT TEMPERATURE 36.2; PEEP 12 cm H2O; RESPIRATORY RATE 24 b/min; TIDAL VOLUME 450 mL; TOTAL HEMOGLOBIN 7.9 G/dl (14.0-18.0)
[2022-03-07 04:07] LABS: ALBUMIN 1.1 G/DL (3.4-5.0); ANION GAP 15 (8-16); BLOOD UREA NITROGEN 110 MG/DL (7-18); BUN/CREATININE RATIO 33.4 (5.4-32.0); CALCIUM 7.1 MG/DL (8.5-10.1); CHLORIDE 110 MMOL/L (99-107); CREATININE 3.29 MG/DL (0.60-1.10); GLUCOSE 262 MG/DL (70-104); LACTATE DEHYDROGENASE 199 U/L (85-227); POTASSIUM 4.9 MMOL/L (3.5-5.1); SODIUM 142 MMOL/L (135-145); TOTAL CARBON DIOXIDE 17.2 MMOL/L (24-32); TRIGLYCERIDES 80 MG/DL (20-135); eGFR 18 ML/MIN
[2022-03-07 04:28] LABS: BASOPHILS # (AUTO) 0.1 X10'3 (0-0.2); BASOPHILS % (AUTO) 0.4 % (0-1); EOSINOPHILS # (AUTO) 0.1 X10'3 (0-0.9); EOSINOPHILS % (AUTO) 0.6 % (0-6); LYMPHOCYTES # (AUTO) 0.6 X10'3 (1.1-4.8); LYMPHOCYTES % (AUTO) 3.1 % (21-51); MEAN CORPUSCULAR HEMOGLOBIN 31.4 PG (27.0-31.0); MEAN CORPUSCULAR HGB CONC 31.7 g/dL (33.0-36.5); MEAN CORPUSCULAR VOLUME 98.9 FL (78-98); MEAN PLATELET VOLUME 7.6 FL (7.4-10.4); MONOCYTES # (AUTO) 1.6 X10'3 (0-0.9); MONOCYTES % (AUTO) 8.8 % (2-12); NEUTROPHILS # (AUTO) 15.3 X10'3 (1.8-7.7); NEUTROPHILS % (AUTO) 87.1 % (42-75); PLATELET COUNT 251 X10'3 (140-440); RED BLOOD COUNT 2.09 X10'6 (4.70-6.10); RED CELL DISTRIBUTION WIDTH 17.1 % (11.5-14.5); WHITE BLOOD COUNT 17.6 X10'3 (4.5-11.0)
[2022-03-07 04:35] LABS: HEMATOCRIT 20.7 % (42.0-52.0); HEMOGLOBIN 6.6 g/dl (14.0-17.9)
[2022-03-07 04:36] LABS: RHEUM FACTOR QUAL REFLEX TITER NEGATIVE (Neg)
[2022-03-07 05:13] LABS: ANISOCYTOSIS 1+; PLATELET ESTIMATE NORMAL; TOTAL CELLS COUNTED 100
[2022-03-07 05:14] LABS: ELLIPTOCYTES FEW; POLYCHROMASIA FEW
[2022-03-07 05:15] LABS: BURR CELLS FEW; LARGE PLATELETS FEW
[2022-03-07] MEDS ORDERED: CALCIUM GLUC 1gm/50ml NACL,iso 50 ML IV ONE (05:15)
[2022-03-07] MEDS: levoTHYROXINE 100mcg tablet NG SCH (07:57)
[2022-03-07] MEDS: pantoprazole 40MG/NS 100ML BAG 100 ML IV SCH (07:57)
[2022-03-07] MEDS: ezetimibe 10mg tablet NG SCH (07:57)
[2022-03-07] MEDS: docusate sodium 100mg/10ml UD cup NG SCH ×2 (07:57→20:00)
[2022-03-07] MEDS: allopurinol 100mg tablet NG SCH (07:57)
[2022-03-07] MEDS: meropenem inj 500 MG in normal saline 100ml IV soln 100 ML IV SCH ×2 (07:57→20:28)
[2022-03-07] MEDS: celeCOXIB 100mg capsule NG SCH ×2 (08:00→20:29)
[2022-03-07] MEDS: QUEtiapine 25mg tablet NG SCH ×2 (08:00→20:29)
[2022-03-07] MEDS: PARoxetine 10mg tablet NG SCH (08:00)
[2022-03-07 08:22] LABS: MAGNESIUM 2.4 MG/DL (1.5-2.4)
[2022-03-07] MEDS: insulin regular, human U-100 3ml vial - multi-dose SQ SCH ×3 (08:37→20:54)
[2022-03-07] MEDS: budesonide 0.5mg/2ml UD nebule IH SCH ×2 (09:31→20:41)
[2022-03-07 09:41] LABS: BASOPHILS # (AUTO) 0.1 X10'3 (0-0.2); BASOPHILS % (AUTO) 0.4 % (0-1); EOSINOPHILS # (AUTO) 0.2 X10'3 (0-0.9); HEMATOCRIT 24.3 % (42.0-52.0); HEMOGLOBIN 7.6 g/dl (14.0-17.9); LYMPHOCYTES # (AUTO) 0.5 X10'3 (1.1-4.8); LYMPHOCYTES % (AUTO) 2.7 % (21-51); MEAN CORPUSCULAR HEMOGLOBIN 30.2 PG (27.0-31.0); MEAN CORPUSCULAR HGB CONC 31.5 g/dL (33.0-36.5); MEAN CORPUSCULAR VOLUME 95.9 FL (78-98); MEAN PLATELET VOLUME 7.8 FL (7.4-10.4); MONOCYTES # (AUTO) 1.2 X10'3 (0-0.9); MONOCYTES % (AUTO) 6.3 % (2-12); NEUTROPHILS # (AUTO) 17.1 X10'3 (1.8-7.7); NEUTROPHILS % (AUTO) 89.6 % (42-75); PLATELET COUNT 243 X10'3 (140-440); RED BLOOD COUNT 2.53 X10'6 (4.70-6.10); RED CELL DISTRIBUTION WIDTH 17.8 % (11.5-14.5); WHITE BLOOD COUNT 19.1 X10'3 (4.5-11.0)
[2022-03-07 09:46] LABS: APTT 30 SECONDS (22-32)
[2022-03-07 10:20] LABS: ANISOCYTOSIS 1+; PLATELET ESTIMATE NORMAL
[2022-03-07 10:21] LABS: BURR CELLS 1+; ELLIPTOCYTES FEW; SCHISTOCYTES FEW
--- NOTE | 2022-03-07 10:35 | NUR ---
AM rounds complete plan to start fentanyl and bicarb gtt. HGB 6.6 -> 7.6 post 1 uPRBC of blood, MD Ruchi lawson with hgb.
--- NOTE | 2022-03-07 10:44 | NUR ---
F/u 03/07: Pt s/p intubation yesterday R NG remains in place tolerating TF at new goal 75ml/hr GRV WNL and MAP 81 during rounds this AM. 100ml stool visualized in rectal bag during rounds this AM. Pt started on Propofol at 13.91ml/hr currently providing additional 367 kcals/day. Will monitor for TF adjustment if remains on Propofol. Rec: 1. Continuous TF per MD using Vital AF at 75ml/hr goal; to provide 1800ml volume/day, 2160 kcals, 135g protein, and 1460ml water. 2. IF Propofol remains at 13.91ml/hr providing additional 367 kcals/day; adjust TF to Vital High Protein at 70ml/hr goal. 3. additional water flush 200ml Q4H; monitor serum Na for adjustment needs 4. PALB Q /; daily wts 5. monitor for future wt and PALB trends for EN adjustment needs 6. routine bowel care 7. advance diet as medically indicated to regular per MANAGER MATERIALS MANAGEMENT/MD recs given age Addendum: 03/07/22 at [address] Amended: Links added.
[2022-03-07] MEDS: FENTANYL 1000MCG/NS 100 ML BAG /PF IV PRN (10:53)
[2022-03-07] MEDS: NORepinephrine 8mg/ 250ml NS 250 ML IV SCH (11:49)
[2022-03-07] MEDS: sodium bicarbonate (8.4%) inj. 100 MEQ in sodium chloride 0.45% 1,000 ML IV SCH (12:02)
[2022-03-07] MEDS: ferrous sulfate 300mg/5ml UD oral liquid NG SCH (12:35)
[2022-03-07 16:32] LABS: BASOPHILS % (AUTO) 0.2 % (0-1); EOSINOPHILS # (AUTO) 0.4 X10'3 (0-0.9); EOSINOPHILS % (AUTO) 2.5 % (0-6); HEMATOCRIT 25.3 % (42.0-52.0); HEMOGLOBIN 8.4 g/dl (14.0-17.9); LYMPHOCYTES # (AUTO) 0.5 X10'3 (1.1-4.8); LYMPHOCYTES % (AUTO) 2.7 % (21-51); MEAN CORPUSCULAR HEMOGLOBIN 32.1 PG (27.0-31.0); MEAN CORPUSCULAR HGB CONC 33.3 g/dL (33.0-36.5); MEAN CORPUSCULAR VOLUME 96.5 FL (78-98); MEAN PLATELET VOLUME 7.8 FL (7.4-10.4); MONOCYTES # (AUTO) 1.1 X10'3 (0-0.9); MONOCYTES % (AUTO) 6.7 % (2-12); NEUTROPHILS # (AUTO) 14.7 X10'3 (1.8-7.7); NEUTROPHILS % (AUTO) 87.9 % (42-75); PLATELET COUNT 218 X10'3 (140-440); RED BLOOD COUNT 2.63 X10'6 (4.70-6.10); RED CELL DISTRIBUTION WIDTH 18.1 % (11.5-14.5); WHITE BLOOD COUNT 16.8 X10'3 (4.5-11.0)
--- NOTE | 2022-03-07 16:41 | NUR ---
MD aware, calcium gluconate was not given with 1uPRBC prior to shift, MD stated not indicated at this time. marked not administered.
[2022-03-07 16:54] LABS: ANISOCYTOSIS 2+; BURR CELLS 1+; PLATELET ESTIMATE NORMAL
[2022-03-07 16:55] LABS: ELLIPTOCYTES 1+; TEAR DROP CELLS FEW
[2022-03-07 17:00] LABS: ALBUMIN 1.1 G/DL (3.4-5.0); ANION GAP 15 (8-16); BLOOD UREA NITROGEN 116 MG/DL (7-18); BUN/CREATININE RATIO 37.5 (5.4-32.0); CALCIUM 6.6 MG/DL (8.5-10.1); CHLORIDE 109 MMOL/L (99-107); CREATININE 3.09 MG/DL (0.60-1.10); SODIUM 140 MMOL/L (135-145); TOTAL CARBON DIOXIDE 16.1 MMOL/L (24-32); eGFR 19 ML/MIN
[2022-03-07 17:01] LABS: GLUCOSE 177 MG/DL (70-104); POTASSIUM 4.3 MMOL/L (3.5-5.1)
--- NOTE | 2022-03-07 17:11 | NUR ---
repeat CBC and BMP discussed with MD. free water flushes to be stopped due to NA 146->140
[2022-03-07] MEDS: atorvastatin 20mg tablet NG SCH (20:28)
[2022-03-07] MEDS: Melatonin 3mg tablet NG SCH (20:29)
[2022-03-07] MEDS: traZODone 50mg tablet NG SCH (20:30)
[2022-03-07] MEDS: insulin glargine (Lantus) pen - multi-dose SQ SCH (20:55)
[2022-03-08] VITALS (35 sets, daily range): BP systolic 79–145; BP diastolic 45–76
[2022-03-08] MEDS: FENTANYL 1000MCG/NS 100 ML BAG /PF IV PRN ×2 (00:30→14:10)
[2022-03-08 01:18] LABS: ABG BASE EXCESS -8.3 mmol/L (-2.0-2.0); ABG HCO3 17.5 mmol/L (22.0-26.0); ABG OXYGEN SATURATION 99.3 % (94-97); ABG PCO2 (T) 35.3 mmHg (35.0-48.0); ABG PO2 (T) 313.7 mmHg (75.0-100.0); ALLEN'S TEST POSITIVE; FCOHb 0.3 % (0.0-3.9); FMetHb 0.4 % (0.0-1.5); FO2Hb 98.6 % (94-97); PATIENT TEMPERATURE 36.1; PEEP 12 cm H2O; RESPIRATORY RATE 24 b/min; TIDAL VOLUME 450 mL; TOTAL HEMOGLOBIN 8.1 G/dl (14.0-18.0)
[2022-03-08] MEDS: dextrose 50%-water 50ml dispensing syringe IV PRN ×2 (02:23→04:03)
[2022-03-08] MEDS: sodium bicarbonate (8.4%) inj. 100 MEQ in sodium chloride 0.45% 1,000 ML IV SCH ×2 (02:31→14:09)
[2022-03-08] MEDS: propofol 1000mg/100ml bottle 100 ML IV SCH ×3 (02:32→16:50)
[2022-03-08 02:44] LABS: BASOPHILS # (AUTO) 0.1 X10'3 (0-0.2); BASOPHILS % (AUTO) 0.4 % (0-1); EOSINOPHILS # (AUTO) 0.5 X10'3 (0-0.9); EOSINOPHILS % (AUTO) 2.6 % (0-6); HEMATOCRIT 23.6 % (42.0-52.0); HEMOGLOBIN 7.8 g/dl (14.0-17.9); LYMPHOCYTES # (AUTO) 0.5 X10'3 (1.1-4.8); LYMPHOCYTES % (AUTO) 2.5 % (21-51); MEAN CORPUSCULAR HEMOGLOBIN 31.2 PG (27.0-31.0); MEAN CORPUSCULAR HGB CONC 32.9 g/dL (33.0-36.5); MEAN CORPUSCULAR VOLUME 94.8 FL (78-98); MEAN PLATELET VOLUME 7.6 FL (7.4-10.4); MONOCYTES # (AUTO) 1.3 X10'3 (0-0.9); MONOCYTES % (AUTO) 6.8 % (2-12); NEUTROPHILS # (AUTO) 16.2 X10'3 (1.8-7.7); NEUTROPHILS % (AUTO) 87.7 % (42-75); PLATELET COUNT 267 X10'3 (140-440); RED BLOOD COUNT 2.49 X10'6 (4.70-6.10); RED CELL DISTRIBUTION WIDTH 18.1 % (11.5-14.5); WHITE BLOOD COUNT 18.4 X10'3 (4.5-11.0)
[2022-03-08] MEDS: NORepinephrine 8mg/ 250ml NS 250 ML IV SCH ×2 (03:00→05:50)
[2022-03-08 03:03] LABS: ALBUMIN 1.2 G/DL (3.4-5.0); ANION GAP 15 (8-16); BLOOD UREA NITROGEN 114 MG/DL (7-18); BUN/CREATININE RATIO 38.1 (5.4-32.0); CALCIUM 7.4 MG/DL (8.5-10.1); CHLORIDE 111 MMOL/L (99-107); CREATININE 2.99 MG/DL (0.60-1.10); MAGNESIUM 2.4 MG/DL (1.5-2.4); POTASSIUM 4.4 MMOL/L (3.5-5.1); SODIUM 145 MMOL/L (135-145); TOTAL CARBON DIOXIDE 18.7 MMOL/L (24-32); eGFR 20 ML/MIN
[2022-03-08 03:10] LABS: GLUCOSE 20 MG/DL (70-104)
[2022-03-08 03:50] LABS: TOTAL CELLS COUNTED 100
[2022-03-08 03:51] LABS: ANISOCYTOSIS 2+; PLATELET ESTIMATE NORMAL
[2022-03-08 03:52] LABS: ELLIPTOCYTES FEW
[2022-03-08 03:53] LABS: BURR CELLS 1+; POLYCHROMASIA FEW
[2022-03-08 03:54] LABS: ABG BASE EXCESS -9.3 mmol/L (-2.0-2.0); ABG HCO3 16.6 mmol/L (22.0-26.0); ABG OXYGEN SATURATION 95.8 % (94-97); ABG PO2 (T) 82.3 mmHg (75.0-100.0); ALLEN'S TEST POSITIVE; FCOHb 0.3 % (0.0-3.9); FO2Hb 95.5 % (94-97); PATIENT TEMPERATURE 35.8; PEEP 12 cm H2O; RESPIRATORY RATE 24 b/min; TIDAL VOLUME 450 mL; TOTAL HEMOGLOBIN 9.3 G/dl (14.0-18.0)
[2022-03-08] MEDS ORDERED: furosemide 40mg/4ml inj IV ONE (04:40)
[2022-03-08] MEDS: ipratropium/albuterol 3ml nebule IH SCH ×3 (09:00→20:26)
[2022-03-08] MEDS: budesonide 0.5mg/2ml UD nebule IH SCH ×2 (09:00→20:26)
[2022-03-08] MEDS: QUEtiapine 25mg tablet NG SCH (09:19)
[2022-03-08] MEDS: allopurinol 100mg tablet NG SCH (09:20)
[2022-03-08] MEDS: ezetimibe 10mg tablet NG SCH (09:20)
[2022-03-08] MEDS: celeCOXIB 100mg capsule NG SCH ×2 (09:20→20:37)
[2022-03-08] MEDS: PARoxetine 10mg tablet NG SCH (09:20)
[2022-03-08] MEDS: docusate sodium 100mg/10ml UD cup NG SCH ×2 (09:20→20:00)
[2022-03-08] MEDS: pantoprazole 40MG/NS 100ML BAG 100 ML IV SCH (09:21)
[2022-03-08] MEDS: meropenem inj 500 MG in normal saline 100ml IV soln 100 ML IV SCH ×2 (09:21→20:37)
[2022-03-08] MEDS: levoTHYROXINE 100mcg tablet NG SCH (09:25)
[2022-03-08 11:41] LABS: ANTINUCLEAR ANTIBODIES Positive (Negative); ANTISTREPTOLYSIN O AB 63.5 IU/mL (0.0-200.0); COMPLEMENT C3, SERUM 82 mg/dL (82-167); COMPLEMENT C4, SERUM 17 mg/dL (12-38)
--- NOTE | 2022-03-08 11:41 | NUR ---
F/u 03/08: Pt remains on Propofol at 13.91ml/hr providing additional 367 kcals/day; pinion polisher okay to adjust EN based on Propofol updated recs below and MD/RN notified. 150ml in rectal bag visualized during RD rounds; likely output over past two days pending stool volume documentation in EMR. Rec: 1. Given Propofol remains at 13.91ml/hr providing additional 367 kcals/day; continuous TF using Vital High Protein at 70ml/hr goal to provide 1680ml volume/day, 1680 kcals, 1404ml water, and 147g protein. 2. IF Propofol off; Continuous TF using Vital AF at 75ml/hr goal would provide 1800ml volume/day, 2160 kcals, 135g protein, and 1460ml water. 3. additional water flush 200ml Q4H; monitor serum Na for adjustment needs 4. PALB Q /; daily wts 5. monitor for further EN adjustment needs 6. routine bowel care 7. advance diet as medically indicated to regular per CONCILIATION COURT JUDGE/ recs given age Addendum: 03/08/22 at [address] Amended: Links added. Addendum: 03/08/22 at [address] UPDATE: Free water stopped per pinion polisher Addendum: 03/08/22 at [address] CORRECTION* TF Consult: Pt remains on Propofol at 13.91ml/hr providing additional 367 kcals/day; pinion polisher okay to adjust EN based on Propofol updated recs below and MD/RN notified. Free water flushes stopped per pinion polisher w/ positive 14.4L fluid balance this admit per EMR. 150ml in rectal bag visualized during RD rounds; likely output over past two days pending stool volume documentation in EMR. Rec: 1. Given Propofol remains at 13.91ml/hr providing additional 367 kcals/day; continuous TF using Vital High Protein at 70ml/hr goal to provide 1680ml volume/day, 1680 kcals, 1404ml water, and 147g protein. 2. IF Propofol off; Continuous TF using Vital AF at 75ml/hr goal would provide 1800ml volume/day, 2160 kcals, 135g protein, and 1460ml water. 3. additional water flush per pinion polisher 4. PALB Q /; daily wts 5. monitor for further EN adjustment needs 6. routine bowel care 7. advance diet as medically indicated to regular per CONCILIATION COURT JUDGE/ recs given age
--- NOTE | 2022-03-08 13:24 | NUR ---
Had family meeting with Terri (case therapist), Na (child welfare social worker), Dr. Hopper (it systems manager), Jillian (RN). Four family members attended in person and one daughter, Miri on the phone. Ford patient's son, Regina and Maverick were in attendance. Dr. Hopper described the patient's current condition clearly. Terri then read a section of the patient's advance directive that states that the patient would not like prolonged life on a ventilator. In addition the advance directive states that Ford and Miri are both POA and can make decisions independently of each other, this raises the question of them countering each others decisions. Both Ford and Miri stated that this was because they were originally estranged from each other but are now working together to ensure they are making the best decisions they can for their father. Dr. Hopper address code status with the family and strongly encouraged that they discuss placing a DNR order on their father due to the fact that if his heart were to stop it would most likely be because of multi-organ failure or wide spread infection and coding him would ultimately probably not save his life. The family stated and understanding of this information but were not ready to make decision at this time. The daughter, Miri, stated that she would like to come and see the patient in person before they really make any changes, she lives in [place]. Dr. Hopper encouraged her to come and see her dad because we really do not have a definite time of life.
[2022-03-08] MEDS: ferrous sulfate 300mg/5ml UD oral liquid NG SCH (14:23)
[2022-03-08] MEDS: atorvastatin 20mg tablet NG SCH (20:37)
[2022-03-08] MEDS: Melatonin 3mg tablet NG SCH (20:37)
[2022-03-08] MEDS: insulin regular, human U-100 3ml vial - multi-dose SQ SCH (20:47)
[2022-03-08] MEDS: insulin glargine (Lantus) pen - multi-dose SQ SCH (20:50)
[2022-03-09] VITALS (35 sets, daily range): BP systolic 119–168; BP diastolic 47–77
[2022-03-09] MEDS: propofol 1000mg/100ml bottle 100 ML IV SCH ×3 (00:42→17:08)
[2022-03-09 02:53] LABS: BASOPHILS # (AUTO) 0.1 X10'3 (0-0.2); BASOPHILS % (AUTO) 0.4 % (0-1); EOSINOPHILS # (AUTO) 0.5 X10'3 (0-0.9); EOSINOPHILS % (AUTO) 3.3 % (0-6); HEMATOCRIT 22.3 % (42.0-52.0); HEMOGLOBIN 7.4 g/dl (14.0-17.9); LYMPHOCYTES # (AUTO) 0.2 X10'3 (1.1-4.8); LYMPHOCYTES % (AUTO) 1.6 % (21-51); MEAN CORPUSCULAR HEMOGLOBIN 31.2 PG (27.0-31.0); MEAN CORPUSCULAR HGB CONC 33.2 g/dL (33.0-36.5); MEAN PLATELET VOLUME 7.6 FL (7.4-10.4); MONOCYTES # (AUTO) 0.9 X10'3 (0-0.9); NEUTROPHILS # (AUTO) 13.1 X10'3 (1.8-7.7); NEUTROPHILS % (AUTO) 88.7 % (42-75); PLATELET COUNT 282 X10'3 (140-440); RED BLOOD COUNT 2.37 X10'6 (4.70-6.10); RED CELL DISTRIBUTION WIDTH 17.7 % (11.5-14.5); WHITE BLOOD COUNT 14.8 X10'3 (4.5-11.0)
[2022-03-09 03:07] LABS: ALBUMIN 1.1 G/DL (3.4-5.0); ANION GAP 14 (8-16); BLOOD UREA NITROGEN 116 MG/DL (7-18); BUN/CREATININE RATIO 44.1 (5.4-32.0); CALCIUM 7.1 MG/DL (8.5-10.1); CHLORIDE 109 MMOL/L (99-107); CREATININE 2.63 MG/DL (0.60-1.10); GLUCOSE 151 MG/DL (70-104); POTASSIUM 4.9 MMOL/L (3.5-5.1); PREALBUMIN 13.3 MG/DL (19-36); SODIUM 143 MMOL/L (135-145); TOTAL CARBON DIOXIDE 20.1 MMOL/L (24-32); TRIGLYCERIDES 71 MG/DL (20-135); eGFR 23 ML/MIN
[2022-03-09] MEDS: ipratropium/albuterol 3ml nebule IH SCH ×3 (03:45→15:11)
[2022-03-09 04:05] LABS: ABG HCO3 19.4 mmol/L (22.0-26.0); ABG OXYGEN SATURATION 97.3 % (94-97); ABG PCO2 (T) 37.2 mmHg (35.0-48.0); ABG PO2 (T) 105.4 mmHg (75.0-100.0); ALLEN'S TEST POSITIVE; FCOHb 0.3 % (0.0-3.9); PATIENT TEMPERATURE 36.7; PEEP 12 cm H2O; RESPIRATORY RATE 24 b/min; TIDAL VOLUME 450 mL; TOTAL HEMOGLOBIN 10.5 G/dl (14.0-18.0)
[2022-03-09] MEDS: levoTHYROXINE 100mcg tablet NG SCH (06:25)
[2022-03-09] MEDS: FENTANYL 1000MCG/NS 100 ML BAG /PF IV PRN (06:29)
[2022-03-09] MEDS: PARoxetine 10mg tablet NG SCH (08:29)
[2022-03-09] MEDS: ezetimibe 10mg tablet NG SCH (08:29)
[2022-03-09] MEDS: celeCOXIB 100mg capsule NG SCH ×2 (08:29→21:51)
[2022-03-09] MEDS: docusate sodium 100mg/10ml UD cup NG SCH ×2 (08:29→20:00)
[2022-03-09] MEDS: sodium bicarbonate 650mg tablet PO SCH ×3 (08:29→21:51)
[2022-03-09] MEDS: meropenem inj 500 MG in normal saline 100ml IV soln 100 ML IV SCH ×2 (08:30→20:00)
[2022-03-09] MEDS: pantoprazole 40MG/NS 100ML BAG 100 ML IV SCH (08:30)
[2022-03-09] MEDS: allopurinol 100mg tablet NG SCH (08:30)
[2022-03-09] MEDS: budesonide 0.5mg/2ml UD nebule IH SCH (09:11)
[2022-03-09] MEDS: ferrous sulfate 300mg/5ml UD oral liquid NG SCH (12:17)
[2022-03-09] MEDS: dexmedetomidine/D5W 100mL 100 ML IV SCH ×2 (12:18→23:11)
[2022-03-09] MEDS: heparin, porcine 5000 units/ml vial SQ SCH ×2 (12:22→21:50)
[2022-03-09 12:48] LABS: A/G RATIO 0.4 (0.7-1.7); ALBUMIN 1.5 g/dL (2.9-4.4); BETA GLOBULIN 0.5 g/dL (0.7-1.3); GAMMA GLOBULIN 1.7 g/dL (0.4-1.8); GLOBULIN, TOTAL 3.5 g/dL (2.2-3.9); M-SPIKE Not Observed g/dL (Not Observed)
[2022-03-09] MEDS ORDERED: furosemide 40mg/4ml inj IV ONE (14:45)
[2022-03-09] MEDS: NORepinephrine 8mg/ 250ml NS 250 ML IV SCH (15:00)
[2022-03-09 15:13] LABS: TOTAL PROTEIN,URINE RANDOM 64.2 MG/DL
[2022-03-09 18:15] LABS: ATYPICAL PANCA <1:20 titer (Neg:<1:20); CYTOPLASMIC (C-ANCA) <1:20 titer (Neg:<1:20); PERINUCLEAR (P-ANCA) <1:20 titer (Neg:<1:20)
[2022-03-09 18:15] LABS: ALBUMIN, UR 9.8 % (.); ALPHA-1-GLOBULIN,UR 2.3 % (.); ALPHA-2-GLOBULIN,UR 12.9 % (.); BETA GLOBULIN, UR 29.3 % (.); GAMMA GLOBULIN,UR 45.8 % (.); PROTEIN,TOTAL,URINE 41.6 mg/dL (Not Estab.)
[2022-03-09] MEDS: Melatonin 3mg tablet NG SCH (21:51)
[2022-03-09] MEDS: atorvastatin 20mg tablet NG SCH (21:51)
[2022-03-09] MEDS: insulin glargine (Lantus) pen - multi-dose SQ SCH (22:41)
[2022-03-09] MEDS: insulin regular, human U-100 3ml vial - multi-dose SQ SCH (22:42)
[2022-03-10] VITALS (37 sets, daily range): BP systolic 13–163; BP diastolic 30–73
[2022-03-10] MEDS: ipratropium/albuterol 3ml nebule IH SCH ×4 (02:40→20:46)
[2022-03-10 02:54] LABS: ABG BASE EXCESS -5.5 mmol/L (-2.0-2.0); ABG HCO3 18.8 mmol/L (22.0-26.0); ABG OXYGEN SATURATION 95.9 % (94-97); ABG PCO2 (T) 31.3 mmHg (35.0-48.0); ABG PO2 (T) 89.2 mmHg (75.0-100.0); ALLEN'S TEST POSITIVE; FMetHb 0.2 % (0.0-1.5); FO2Hb 95.7 % (94-97); PATIENT TEMPERATURE 36.9; PEEP 10 cm H2O; RESPIRATORY RATE 24 b/min; TIDAL VOLUME 450 mL; TOTAL HEMOGLOBIN 7.2 G/dl (14.0-18.0)
[2022-03-10 03:34] LABS: BASOPHILS # (AUTO) 0.1 X10'3 (0-0.2); BASOPHILS % (AUTO) 0.8 % (0-1); EOSINOPHILS # (AUTO) 0.3 X10'3 (0-0.9); EOSINOPHILS % (AUTO) 3.4 % (0-6); LYMPHOCYTES # (AUTO) 0.3 X10'3 (1.1-4.8); LYMPHOCYTES % (AUTO) 3.2 % (21-51); MEAN CORPUSCULAR HEMOGLOBIN 31.7 PG (27.0-31.0); MEAN CORPUSCULAR HGB CONC 33.3 g/dL (33.0-36.5); MEAN CORPUSCULAR VOLUME 95.1 FL (78-98); MEAN PLATELET VOLUME 7.7 FL (7.4-10.4); MONOCYTES # (AUTO) 0.7 X10'3 (0-0.9); MONOCYTES % (AUTO) 7.2 % (2-12); NEUTROPHILS # (AUTO) 8.3 X10'3 (1.8-7.7); NEUTROPHILS % (AUTO) 85.4 % (42-75); PLATELET COUNT 246 X10'3 (140-440); RED BLOOD COUNT 2.12 X10'6 (4.70-6.10); WHITE BLOOD COUNT 9.7 X10'3 (4.5-11.0)
[2022-03-10] MEDS: insulin regular, human U-100 3ml vial - multi-dose SQ SCH ×2 (03:38→21:06)
[2022-03-10 03:45] LABS: ANION GAP 10 (8-16); BLOOD UREA NITROGEN 115 MG/DL (7-18); BUN/CREATININE RATIO 52.8 (5.4-32.0); CALCIUM 6.9 MG/DL (8.5-10.1); CHLORIDE 111 MMOL/L (99-107); CREATININE 2.18 MG/DL (0.60-1.10); GLUCOSE 157 MG/DL (70-104); POTASSIUM 5.2 MMOL/L (3.5-5.1); SODIUM 143 MMOL/L (135-145); TOTAL CARBON DIOXIDE 21.6 MMOL/L (24-32); eGFR 29 ML/MIN
[2022-03-10 03:48] LABS: HEMOGLOBIN 6.7 g/dl (14.0-17.9)
[2022-03-10 03:49] LABS: HEMATOCRIT 20.2 % (42.0-52.0)
--- NOTE | 2022-03-10 05:00 | NUR ---
Tele rounds with Dr. Barney. Notified of critical H&H. Orders received.
[2022-03-10] MEDS: propofol 1000mg/100ml bottle 100 ML IV SCH ×2 (06:00→17:08)
[2022-03-10] MEDS: NORepinephrine 8mg/ 250ml NS 250 ML IV SCH (06:00)
[2022-03-10] MEDS: budesonide 0.5mg/2ml UD nebule IH SCH ×2 (07:39→20:46)
[2022-03-10] MEDS: heparin, porcine 5000 units/ml vial SQ SCH (08:00)
[2022-03-10] MEDS: meropenem inj 500 MG in normal saline 100ml IV soln 100 ML IV SCH (08:18)
[2022-03-10] MEDS: sodium bicarbonate 650mg tablet PO SCH ×3 (08:19→20:56)
[2022-03-10] MEDS: allopurinol 100mg tablet NG SCH (08:19)
[2022-03-10] MEDS: ezetimibe 10mg tablet NG SCH (08:19)
[2022-03-10] MEDS: QUEtiapine 25mg tablet PO SCH ×2 (08:19→20:56)
[2022-03-10] MEDS: PARoxetine 10mg tablet NG SCH (08:19)
[2022-03-10] MEDS: pantoprazole 40MG/NS 100ML BAG 100 ML IV SCH (08:19)
[2022-03-10] MEDS: docusate sodium 100mg/10ml UD cup NG SCH ×2 (08:19→20:00)
[2022-03-10] MEDS: celeCOXIB 100mg capsule NG SCH ×2 (08:19→20:56)
[2022-03-10] MEDS: levoTHYROXINE 100mcg tablet NG SCH (08:22)
[2022-03-10] MEDS: dexmedetomidine/D5W 100mL 100 ML IV SCH ×2 (08:34→17:10)
--- NOTE | 2022-03-10 12:05 | NUR ---
F/u 03/10: Pt remains intubated tolerating TF at goal GRV WNL. Propofol visualized during rounds at 4.59ml/hr down from earlier 9.18 ml/hr this AM per EMR; currently providing additional 121 kcals/day. Rectal tube still -200ml in bag visualized during rounds likely same 200ml at least past 3 days though pt has stool constantly leaking from around tube and pending rectal examination today to evaluate for constipation per RN. Receiving routine colace though is also on routine oral iron. Notable sacral DTI per DNP at rounds. Will monitor for Propofol rate changes and subsequent EN adjustment needs this admit. Rec: 1. While Propofol rate fluctuating; Continuous TF using Vital High Protein at 70ml/hr goal to provide 1680ml volume/day, 1680 kcals, 1404ml water, and 147g protein. 2. IF Propofol off; Continuous TF using Vital AF at 75ml/hr goal would provide 1800ml volume/day, 2160 kcals, 135g protein, and 1460ml water. 3. additional water flush per ross lift operator 4. PALB Q /; daily wts 5. monitor for Propofol rates and further EN adjustment needs 6. routine bowel care; consider additional bowel regimen if constipation per physician discretion Addendum: 03/10/22 at [address] Amended: Links added.
[2022-03-10] MEDS: ferrous sulfate 300mg/5ml UD oral liquid NG SCH (12:50)
[2022-03-10] MEDS: NOREPINEPHRINE BITARTRATE/D5W 250 ML IV SCH (16:57)
[2022-03-10] MEDS: atorvastatin 20mg tablet NG SCH (20:56)
[2022-03-10] MEDS: meropenem inj 1 GM in normal saline 100ml IV soln 100 ML IV SCH (20:56)
[2022-03-10] MEDS: Melatonin 3mg tablet NG SCH (20:57)
[2022-03-10] MEDS: insulin glargine (Lantus) pen - multi-dose SQ SCH (21:07)
[2022-03-11] VITALS (36 sets, daily range): BP systolic 91–143; BP diastolic 31–59
[2022-03-11] MEDS: dexmedetomidine/D5W 100mL 100 ML IV SCH ×5 (02:25→23:04)
[2022-03-11] MEDS: ipratropium/albuterol 3ml nebule IH SCH ×4 (03:12→19:15)
[2022-03-11 03:15] LABS: BASOPHILS # (AUTO) 0.1 X10'3 (0-0.2); BASOPHILS % (AUTO) 0.7 % (0-1); EOSINOPHILS # (AUTO) 0.2 X10'3 (0-0.9); EOSINOPHILS % (AUTO) 1.5 % (0-6); HEMATOCRIT 23.2 % (42.0-52.0); HEMOGLOBIN 7.6 g/dl (14.0-17.9); LYMPHOCYTES # (AUTO) 0.2 X10'3 (1.1-4.8); LYMPHOCYTES % (AUTO) 1.5 % (21-51); MEAN CORPUSCULAR HEMOGLOBIN 30.5 PG (27.0-31.0); MEAN CORPUSCULAR HGB CONC 32.9 g/dL (33.0-36.5); MEAN CORPUSCULAR VOLUME 92.9 FL (78-98); MEAN PLATELET VOLUME 7.9 FL (7.4-10.4); MONOCYTES # (AUTO) 0.7 X10'3 (0-0.9); NEUTROPHILS % (AUTO) 91.3 % (42-75); PLATELET COUNT 254 X10'3 (140-440); RED CELL DISTRIBUTION WIDTH 16.1 % (11.5-14.5); WHITE BLOOD COUNT 13.2 X10'3 (4.5-11.0)
[2022-03-11 03:25] LABS: ABG BASE EXCESS -2.4 mmol/L (-2.0-2.0); ABG HCO3 20.7 mmol/L (22.0-26.0); ABG OXYGEN SATURATION 94.2 % (94-97); ABG PCO2 (T) 28.7 mmHg (35.0-48.0); ABG PO2 (T) 70.5 mmHg (75.0-100.0); ALLEN'S TEST POSITIVE; FMetHb 0.2 % (0.0-1.5); PATIENT TEMPERATURE 36.8; PEEP 8 cm H2O; RESPIRATORY RATE 24 b/min; TIDAL VOLUME 450 mL; TOTAL HEMOGLOBIN 8.1 G/dl (14.0-18.0)
[2022-03-11] MEDS: insulin regular, human U-100 3ml vial - multi-dose SQ SCH ×3 (03:27→20:11)
[2022-03-11 03:28] LABS: ANION GAP 8 (8-16); BLOOD UREA NITROGEN 113 MG/DL (7-18); BUN/CREATININE RATIO 64.6 (5.4-32.0); CALCIUM 7.1 MG/DL (8.5-10.1); CHLORIDE 113 MMOL/L (99-107); CREATININE 1.75 MG/DL (0.60-1.10); GLUCOSE 123 MG/DL (70-104); POTASSIUM 5.2 MMOL/L (3.5-5.1); SODIUM 145 MMOL/L (135-145); TOTAL CARBON DIOXIDE 24.5 MMOL/L (24-32); eGFR 37 ML/MIN
[2022-03-11] MEDS: budesonide 0.5mg/2ml UD nebule IH SCH ×2 (07:12→19:15)
[2022-03-11] MEDS: celeCOXIB 100mg capsule NG SCH ×2 (08:28→19:26)
[2022-03-11] MEDS: docusate sodium 100mg/10ml UD cup NG SCH ×2 (08:28→19:26)
[2022-03-11] MEDS: QUEtiapine 25mg tablet PO SCH ×2 (08:28→19:26)
[2022-03-11] MEDS: pantoprazole 40MG/NS 100ML BAG 100 ML IV SCH (08:29)
[2022-03-11] MEDS: PARoxetine 10mg tablet NG SCH (08:29)
[2022-03-11] MEDS: allopurinol 100mg tablet NG SCH (08:29)
[2022-03-11] MEDS: midodrine tablet 2.5 MG TABLET PO SCH ×2 (08:29→12:00)
[2022-03-11] MEDS: ezetimibe 10mg tablet NG SCH (08:29)
[2022-03-11] MEDS: sodium bicarbonate 650mg tablet PO SCH ×3 (08:29→20:13)
[2022-03-11] MEDS: levoTHYROXINE 100mcg tablet NG SCH (08:29)
[2022-03-11] MEDS: meropenem inj 1 GM in normal saline 100ml IV soln 100 ML IV SCH ×2 (08:30→19:26)
[2022-03-11] MEDS: ferrous sulfate 300mg/5ml UD oral liquid NG SCH (12:00)
[2022-03-11] MEDS: propofol 1000mg/100ml bottle 100 ML IV SCH ×2 (13:55→23:46)
[2022-03-11 14:42] LABS: ABG BASE EXCESS -2.9 mmol/L (-2.0-2.0); ABG HCO3 19.9 mmol/L (22.0-26.0); ABG OXYGEN SATURATION 93.5 % (94-97); ABG PCO2 (T) 26.7 mmHg (35.0-48.0); ALLEN'S TEST POSITIVE; FCOHb 0.3 % (0.0-3.9); FMetHb 0.3 % (0.0-1.5); FO2Hb 92.9 % (94-97); PEEP 6 cm H2O; RESPIRATORY RATE 16 b/min; TOTAL HEMOGLOBIN 7.8 G/dl (14.0-18.0)
[2022-03-11 17:46] LABS: UREA NITROGEN 24HR,URINE 20.2 GM/24HR (7-20)
[2022-03-11] MEDS: NOREPINEPHRINE BITARTRATE/D5W 250 ML IV SCH (19:25)
[2022-03-11] MEDS: heparin, porcine 5000 units/ml vial SQ SCH (19:27)
[2022-03-11] MEDS: insulin glargine (Lantus) pen - multi-dose SQ SCH (20:12)
[2022-03-11] MEDS: atorvastatin 20mg tablet NG SCH (20:13)
[2022-03-11] MEDS: Melatonin 3mg tablet NG SCH (20:13)
[2022-03-11] MEDS: acetaminophen 325mg/10.15ml oral unit dose solution NG PRN (21:26)
[2022-03-11] MEDS: midodrine 5mg tablet PO SCH (23:03)
[2022-03-12] VITALS (34 sets, daily range): BP systolic 97–152; BP diastolic 27–72
[2022-03-12] MEDS: NOREPINEPHRINE BITARTRATE/D5W 250 ML IV SCH (02:17)
[2022-03-12] MEDS: insulin regular, human U-100 3ml vial - multi-dose SQ SCH ×3 (02:37→20:26)
[2022-03-12 02:43] LABS: BASOPHILS # (AUTO) 0.1 X10'3 (0-0.2); EOSINOPHILS # (AUTO) 0.2 X10'3 (0-0.9); EOSINOPHILS % (AUTO) 1.4 % (0-6); HEMATOCRIT 22.3 % (42.0-52.0); HEMOGLOBIN 7.4 g/dl (14.0-17.9); LYMPHOCYTES # (AUTO) 0.3 X10'3 (1.1-4.8); MEAN CORPUSCULAR HEMOGLOBIN 30.8 PG (27.0-31.0); MEAN CORPUSCULAR HGB CONC 33.3 g/dL (33.0-36.5); MEAN CORPUSCULAR VOLUME 92.7 FL (78-98); MEAN PLATELET VOLUME 7.7 FL (7.4-10.4); MONOCYTES # (AUTO) 0.8 X10'3 (0-0.9); MONOCYTES % (AUTO) 6.3 % (2-12); NEUTROPHILS # (AUTO) 11.5 X10'3 (1.8-7.7); NEUTROPHILS % (AUTO) 89.3 % (42-75); PLATELET COUNT 233 X10'3 (140-440); RED BLOOD COUNT 2.41 X10'6 (4.70-6.10); RED CELL DISTRIBUTION WIDTH 16.5 % (11.5-14.5); WHITE BLOOD COUNT 12.9 X10'3 (4.5-11.0)
[2022-03-12 02:52] LABS: ALBUMIN 0.9 G/DL (3.4-5.0); ANION GAP 10 (8-16); BLOOD UREA NITROGEN 111 MG/DL (7-18); BUN/CREATININE RATIO 64.9 (5.4-32.0); CALCIUM 7.2 MG/DL (8.5-10.1); CHLORIDE 114 MMOL/L (99-107); CREATININE 1.71 MG/DL (0.60-1.10); GLUCOSE 104 MG/DL (70-104); POTASSIUM 4.9 MMOL/L (3.5-5.1); SODIUM 146 MMOL/L (135-145); TOTAL CARBON DIOXIDE 21.9 MMOL/L (24-32); TRIGLYCERIDES 32 MG/DL (20-135); eGFR 38 ML/MIN
[2022-03-12] MEDS: ipratropium/albuterol 3ml nebule IH SCH ×4 (02:52→20:43)
[2022-03-12 03:05] LABS: ABG BASE EXCESS -3.3 mmol/L (-2.0-2.0); ABG HCO3 19.3 mmol/L (22.0-26.0); ABG OXYGEN SATURATION 91.2 % (94-97); ABG PCO2 (T) 26.4 mmHg (35.0-48.0); ABG PO2 (T) 63.9 mmHg (75.0-100.0); ALLEN'S TEST POSITIVE; FCOHb 0.3 % (0.0-3.9); FMetHb 0.2 % (0.0-1.5); FO2Hb 90.7 % (94-97); PATIENT TEMPERATURE 37.4; PEEP 6 cm H2O; TOTAL HEMOGLOBIN 8.3 G/dl (14.0-18.0)
[2022-03-12] MEDS: dexmedetomidine/D5W 100mL 100 ML IV SCH ×5 (04:02→21:38)
[2022-03-12] MEDS: heparin, porcine 5000 units/ml vial SQ SCH ×3 (04:03→19:55)
[2022-03-12] MEDS ORDERED: furosemide 40mg/4ml inj IV ONE (04:50)
[2022-03-12] MEDS: propofol 1000mg/100ml bottle 100 ML IV SCH ×3 (05:27→21:38)
[2022-03-12] MEDS: budesonide 0.5mg/2ml UD nebule IH SCH ×2 (07:53→20:43)
[2022-03-12] MEDS: docusate sodium 100mg/10ml UD cup NG SCH ×2 (08:00→19:54)
[2022-03-12] MEDS: pantoprazole 40MG/NS 100ML BAG 100 ML IV SCH (08:19)
[2022-03-12] MEDS: meropenem inj 1 GM in normal saline 100ml IV soln 100 ML IV SCH ×2 (08:19→19:55)
[2022-03-12] MEDS ORDERED: bumetanide 0.25mg/ml 4ml vial IV ONE (08:20)
[2022-03-12] MEDS: allopurinol 100mg tablet NG SCH (08:22)
[2022-03-12] MEDS: ezetimibe 10mg tablet NG SCH (08:22)
[2022-03-12] MEDS: celeCOXIB 100mg capsule NG SCH ×2 (08:24→19:55)
[2022-03-12] MEDS: QUEtiapine 25mg tablet PO SCH ×2 (08:24→19:55)
[2022-03-12] MEDS: sodium bicarbonate 650mg tablet PO SCH ×3 (08:24→21:39)
[2022-03-12] MEDS: PARoxetine 10mg tablet NG SCH (08:25)
[2022-03-12] MEDS: levoTHYROXINE 100mcg tablet NG SCH (08:27)
[2022-03-12] MEDS: midodrine 5mg tablet PO SCH ×2 (08:28→17:36)
[2022-03-12] MEDS: ferrous sulfate 300mg/5ml UD oral liquid NG SCH (12:09)
[2022-03-12] MEDS: insulin glargine (Lantus) pen - multi-dose SQ SCH (20:28)
[2022-03-12] MEDS: atorvastatin 20mg tablet NG SCH (21:39)
[2022-03-12] MEDS: Melatonin 3mg tablet NG SCH (21:39)
[2022-03-13] VITALS (35 sets, daily range): BP systolic 0–136; BP diastolic 0–61
[2022-03-13] MEDS: midodrine 5mg tablet PO SCH ×2 (00:11→07:45)
--- NOTE | 2022-03-13 01:20 | NUR ---
Noted SVT with rate in 140s on monitor. Spontaneous conversion to Sinus tachy rate in low 100's after cold compress placed on forehead
[2022-03-13] MEDS: insulin regular, human U-100 3ml vial - multi-dose SQ SCH ×3 (01:45→14:39)
[2022-03-13 02:20] LABS: BASOPHILS # (AUTO) 0.1 X10'3 (0-0.2); BASOPHILS % (AUTO) 0.8 % (0-1); EOSINOPHILS # (AUTO) 0.3 X10'3 (0-0.9); EOSINOPHILS % (AUTO) 2.9 % (0-6); HEMATOCRIT 23.8 % (42.0-52.0); LYMPHOCYTES # (AUTO) 0.3 X10'3 (1.1-4.8); LYMPHOCYTES % (AUTO) 2.3 % (21-51); MEAN CORPUSCULAR HEMOGLOBIN 31.7 PG (27.0-31.0); MEAN CORPUSCULAR HGB CONC 33.5 g/dL (33.0-36.5); MEAN CORPUSCULAR VOLUME 94.7 FL (78-98); MEAN PLATELET VOLUME 7.7 FL (7.4-10.4); MONOCYTES % (AUTO) 8.4 % (2-12); NEUTROPHILS # (AUTO) 10.2 X10'3 (1.8-7.7); NEUTROPHILS % (AUTO) 85.6 % (42-75); PLATELET COUNT 264 X10'3 (140-440); RED BLOOD COUNT 2.52 X10'6 (4.70-6.10); RED CELL DISTRIBUTION WIDTH 16.4 % (11.5-14.5)
[2022-03-13] MEDS: ipratropium/albuterol 3ml nebule IH SCH ×3 (02:52→15:05)
[2022-03-13 03:05] LABS: ALBUMIN 0.9 G/DL (3.4-5.0); ANION GAP 11 (8-16); BLOOD UREA NITROGEN 106 MG/DL (7-18); BUN/CREATININE RATIO 64.2 (5.4-32.0); CALCIUM 7.4 MG/DL (8.5-10.1); CHLORIDE 112 MMOL/L (99-107); CREATININE 1.65 MG/DL (0.60-1.10); GLUCOSE 174 MG/DL (70-104); POTASSIUM 4.9 MMOL/L (3.5-5.1); PREALBUMIN 10.8 MG/DL (19-36); SODIUM 145 MMOL/L (135-145); TOTAL CARBON DIOXIDE 22.5 MMOL/L (24-32); eGFR 40 ML/MIN
[2022-03-13 03:15] LABS: ABG BASE EXCESS -1.7 mmol/L (-2.0-2.0); ABG HCO3 21.5 mmol/L (22.0-26.0); ABG OXYGEN SATURATION 94.6 % (94-97); ABG PCO2 (T) 30.8 mmHg (35.0-48.0); ABG PO2 (T) 76.1 mmHg (75.0-100.0); ALLEN'S TEST POSITIVE; FCOHb 0.3 % (0.0-3.9); FMetHb 0.2 % (0.0-1.5); FO2Hb 94.1 % (94-97); PATIENT TEMPERATURE 37.3; PEEP 10 cm H2O; RESPIRATORY RATE 16 b/min; TOTAL HEMOGLOBIN 8.6 G/dl (14.0-18.0)
[2022-03-13] MEDS: NOREPINEPHRINE BITARTRATE/D5W 250 ML IV SCH (03:16)
[2022-03-13] MEDS: heparin, porcine 5000 units/ml vial SQ SCH ×2 (03:17→12:22)
[2022-03-13] MEDS: dexmedetomidine/D5W 100mL 100 ML IV PRN ×4 (03:25→18:30)
[2022-03-13] MEDS: propofol 1000mg/100ml bottle 100 ML IV SCH ×2 (05:00→13:58)
[2022-03-13] MEDS ORDERED: bumetanide 0.25mg/ml 4ml vial IV SCH (06:00)
[2022-03-13] MEDS: budesonide 0.5mg/2ml UD nebule IH SCH (07:42)
[2022-03-13] MEDS: pantoprazole 40MG/NS 100ML BAG 100 ML IV SCH (07:43)
[2022-03-13] MEDS: docusate sodium 100mg/10ml UD cup NG SCH (07:43)
[2022-03-13] MEDS: PARoxetine 10mg tablet NG SCH (07:44)
[2022-03-13] MEDS: celeCOXIB 100mg capsule NG SCH (07:44)
[2022-03-13] MEDS: ezetimibe 10mg tablet NG SCH (07:44)
[2022-03-13] MEDS: QUEtiapine 25mg tablet PO SCH (07:44)
[2022-03-13] MEDS: sodium bicarbonate 650mg tablet PO SCH ×2 (07:45→12:21)
[2022-03-13] MEDS: levoTHYROXINE 100mcg tablet NG SCH (07:45)
[2022-03-13] MEDS: allopurinol 100mg tablet NG SCH (09:50)
--- NOTE | 2022-03-13 10:43 | NUR ---
Patient in room ICU 2037. I have received report from Chandrika PARADA and had the opportunity to ask questions and assume patient care. DNP to see: reviewed POC for pt. At about 1400 family to come in, turn off sedation and see what pt does. Put pt on SBT and he was overbreathing vent but not likely to remain extubated if family goes that route. Scrotum edematous, bigger than a soft ball. Meropenem was not available, pharm called for med. Med arrived about 1030.
[2022-03-13] MEDS: meropenem inj 1 GM in normal saline 100ml IV soln 100 ML IV SCH (10:49)
--- NOTE | 2022-03-13 11:22 | NUR ---
F/u 03/13: Pt remains intubated tolerating TF at goal GRV WNL. Propofol visualized at 11.47ml/hr during rounds; providing additional 303 kcals/day. LBM 03/12 stooling receiving routine colace w/ rectal tube no longer in place per RN this AM. Will continue to monitor for further nutrition intervention needs. Rec: 1. While Propofol rate fluctuating; Continuous TF using Vital High Protein at 70ml/hr goal to provide 1680ml volume/day, 1680 kcals, 1404ml water, and 147g protein. 2. IF Propofol off; Continuous TF using Vital AF at 75ml/hr goal would provide 1800ml volume/day, 2160 kcals, 135g protein, and 1460ml water. 3. additional water flush per draw string knotter 4. PALB Q /; daily wts 5. monitor for Propofol rates and further EN adjustment needs 6. routine bowel care Addendum: 03/13/22 at [address] Amended: Links added.
[2022-03-13] MEDS: ferrous sulfate 300mg/5ml UD oral liquid NG SCH (12:21)
--- NOTE | 2022-03-13 13:53 | NUR ---
Family Daughter at bedside. Pt BP less stable, HR tachy now, RR increased (31) on same propofol rate & needing increased Levo to maintain MAP > 60. Family aware that at 1400 changes to meds and vent are planned. CN aware of condition change.
--- NOTE | 2022-03-13 17:16 | NUR ---
Family Family at bedside. Provider at bedside and explained we'd turn off the sedation, after about 20 mins the sedative affects would be minimal. At that point, the vent would be switched to a different mode to see if he can breath on his own. Sedation held at 1704.
--- NOTE | 2022-03-13 17:34 | NUR ---
Vent Changed to CPAP by RN with provider at bedside. RR 37 with TVs at 340. Family at beside with pt x 5.
--- NOTE | 2022-03-13 17:52 | NUR ---
Vent changed Provider Kamryn put vent back to A/C PC at previous settings and discussion plan of care with family.
[2022-03-13] MEDS ORDERED: LORazepam 2 mg/ml vial IV PRN (18:20)
[2022-03-13] MEDS ORDERED: morphine/NS 100mg/100ml bag 100 ML IV SCH (18:20)
--- NOTE | 2022-03-13 18:25 | NUR ---
Problems reprioritized. Patient report given, questions answered & plan of care reviewed with Chandrika PARADA.
--- NOTE | 2022-03-13 18:46 | NUR ---
Family at bedside for transition to comfort care. Explanation of the process has been provided along with approximate time-frame. Opportunity for questions provided and all questions answered. Family verbalizes understanding of the information given.
--- NOTE | 2022-03-13 19:00 | NUR ---
At bedside, Levophed, precedex, and propofol DC'd as ordered. Morphine drip started at 2.5mg/hr via pump as ordered. Family explanation given, verbalized understanding of info given.
--- NOTE | 2022-03-13 19:30 | NUR ---
RR >18 morphine drip increased to 5mg/hr as ordered. Pt restless, ativan given as ordered
--- NOTE | 2022-03-13 20:18 | NUR ---
RN IS TO DOCUMENT YES TO ALL APPLICABLE AREAS Pronouncement of : 1. Time Physician Notified: 2029 2. Date of : 03/13/2022 3. Time of : 2017 4. DNR/Withdraw life support documented: y 5. Monitor strip has been placed on chart: y 6. Assessment process is of one-minute duration and includes following criteria: a) Patient is unresponsive to all stimuli: y b) Pupils fixed and non-reactive: y c) Auscultation of precordium reveals absence of heart tones: y d) Auscultation of lungs reveals absence of breath sounds: y e) Absence of blood pressure / all vital signs: y f) QRS complexes are not present on monitor / EKG strip: y g) Pacer spikes without capture: NA 4. Comments: family at bedside at time of passing, physicians, donor network, and mortuary notified. Awaiting transfer of remains to mortuary
--- NOTE | 2022-03-13 21:00 | NUR ---
Call to [facility] (declined) and mortuary. Post care done. awaiting mortuary.
== END 2022-03-13 20:18 | DRG 870 ==
LOC: ER 14:56 → ED HOLD 17:54 → ICU 2S 19:52
PROVIDERS: ADMIT Internal Medicine Nephrology; ATTEND Internal Medicine Nephrology
PROC: 5A0935A Assistance with Respiratory Ventilation, Less than 24 Consecutive Hours, High Flow/Velocity Cannula (ICD-10-PCS; 2022-03-01)
PROC: 05HY33Z Insertion of Infusion Device into Upper Vein, Percutaneous Approach (ICD-10-PCS; 2022-03-01)
PROC: CF1C1ZZ Planar Nuclear Medicine Imaging of Hepatobiliary System, All using Technetium 99m (Tc-99m) (ICD-10-PCS; 2022-03-01)
PROC: 0F9430Z Drainage of Gallbladder with Drainage Device, Percutaneous Approach (ICD-10-PCS; 2022-03-01)
PROC: 0DH67UZ Insertion of Feeding Device into Stomach, Via Natural or Artificial Opening (ICD-10-PCS; 2022-03-01)
PROC: 5A0935A Assistance with Respiratory Ventilation, Less than 24 Consecutive Hours, High Flow/Velocity Cannula (ICD-10-PCS; 2022-03-02)
PROC: 5A0935A Assistance with Respiratory Ventilation, Less than 24 Consecutive Hours, High Flow/Velocity Cannula (ICD-10-PCS; 2022-03-03)
PROC: 5A0935A Assistance with Respiratory Ventilation, Less than 24 Consecutive Hours, High Flow/Velocity Cannula (ICD-10-PCS; 2022-03-04)
PROC: 5A0935A Assistance with Respiratory Ventilation, Less than 24 Consecutive Hours, High Flow/Velocity Cannula (ICD-10-PCS; 2022-03-05)
PROC: 5A1955Z Respiratory Ventilation, Greater than 96 Consecutive Hours (ICD-10-PCS; principal; 2022-03-06)
PROC: 0BH17EZ Insertion of Endotracheal Airway into Trachea, Via Natural or Artificial Opening (ICD-10-PCS; 2022-03-06)
PROC: 0B9D8ZX Drainage of Right Middle Lung Lobe, Via Natural or Artificial Opening Endoscopic, Diagnostic (ICD-10-PCS; 2022-03-06)
PROC: 5A0935A Assistance with Respiratory Ventilation, Less than 24 Consecutive Hours, High Flow/Velocity Cannula (ICD-10-PCS; 2022-03-06)
PROC: 5A09357 Assistance with Respiratory Ventilation, Less than 24 Consecutive Hours, Continuous Positive Airway Pressure (ICD-10-PCS; 2022-03-06)
DX: A40.9 Streptococcal sepsis, unspecified (principal); G93.41 Metabolic encephalopathy; I21.A1 Myocardial infarction type 2; J18.9 Pneumonia, unspecified organism; J96.01 Acute respiratory failure with hypoxia; R65.21 Severe sepsis with septic shock; J81.0 Acute pulmonary edema; E87.0 Hyperosmolality and hypernatremia; I47.2 Ventricular tachycardia; K81.0 Acute cholecystitis; N17.9 Acute kidney failure, unspecified; L03.211 Cellulitis of face; D62 Acute posthemorrhagic anemia; E44.0 Moderate protein-calorie malnutrition; J44.0 Chronic obstructive pulmonary disease with (acute) lower respiratory infection; Z66 Do not resuscitate; Z20.822 Contact with and (suspected) exposure to COVID-19; R57.1 Hypovolemic shock; I12.9 Hypertensive chronic kidney disease with stage 1 through stage 4 chronic kidney disease, or unspecified chronic kidney disease; I25.10 Atherosclerotic heart disease of native coronary artery without angina pectoris; F03.90 Unspecified dementia, unspecified severity, without behavioral disturbance, psychotic disturbance, mood disturbance, and anxiety; E78.5 Hyperlipidemia, unspecified; E78.00 Pure hypercholesterolemia, unspecified; E03.9 Hypothyroidism, unspecified; K11.20 Sialoadenitis, unspecified; N18.30 Chronic kidney disease, stage 3 unspecified; E11.22 Type 2 diabetes mellitus with diabetic chronic kidney disease; E11.649 Type 2 diabetes mellitus with hypoglycemia without coma; E88.09 Other disorders of plasma-protein metabolism, not elsewhere classified; I48.91 Unspecified atrial fibrillation; M10.9 Gout, unspecified; Z96.651 Presence of right artificial knee joint; N40.0 Benign prostatic hyperplasia without lower urinary tract symptoms; Z95.1 Presence of aortocoronary bypass graft; Z82.49 Family history of ischemic heart disease and other diseases of the circulatory system; Z83.3 Family history of diabetes mellitus; I25.2 Old myocardial infarction; Z68.31 Body mass index [BMI] 31.0-31.9, adult; K06.8 Other specified disorders of gingiva and edentulous alveolar ridge; T14.8XXA Other injury of unspecified body region, initial encounter
CPT/HCPCS: 31628; 31645; 36415; 36430; 36569; 36600; 47490; 70450; 70486; 71045; 74018; 74176; 75989; 76700; 76942; 78226; 80048; 80053; 80202; 81001; 82140; 82150; 82248; 82570; 82803; 82948; 83036; 83605; 83615; 83690; 83735; 83880; 84100; 84133; 84134; 84145; 84155; 84156; 84165; 84166; 84300; 84443; 84478; 84484; 84560; 85007; 85008; 85018; 85025; 85610; 85730; 86038; 86060; 86160; 86256; 86430; 86592; 86885; 86900; 86901; 86920; 87040; 87070; 87077; 87081; 87186; 87207; 87635; 92508; 92616; 93005; 93306; 94002; 94003; 94640; 94660; 94760; 96365; 96366; 96368; 96375; 99291; A9537; C1751; C9113; C9803; G0378; J0282; J1160; J1644; J1815; J1940; J2020; J2060; J2185; J2250; J2274; J2370; J2543; J2704; J3010; J3370; J3480; J3490; J7030; J7040; J7050; J7070; P9016; P9045